=== PATIENT | male | born 1940 | race Caucasian/White ===

== ENCOUNTER 2018-08-01 06:13 | Inpatient (IN) | payer MEDICARE, OTHER ==
[2018-08-01] VITALS (44 sets, daily range): BP systolic 56–183; BP diastolic 31–86
[~2018-08-01] VITALS: Ht 170.2 cm; Wt 65.8 kg
[~2018-08-01 06:13] MED LIST: ACCUNEB SO1.25 MG/1; ASPIR 8181 MG PO; B-121000 MC2 PO; BROVANA15 MCG/2 M INH; COLACE100 MG PO; DUONEB 2.5-0.5 M3 ML INH; ENOXAPARIN40 MG/0.1 SUBQ; FLORANEX TABLE1 EACH PO; HYDROCODONE-AP1 EAC6 PO; IPRAT-ALBUT 0.5-3 ML INH; LEVAQUIN 500 M500 M2 PO; MIRALAX17 GM PO; NORCO 5-325 TA1 EACH PO; NYAMYC15 GM TOP; PREDNISONE 10 M10 MG PO; PROVIGIL 200 M200 M1 PO; RISPERDAL0.25 MG PO; RISPERDAL0.5 MG PO; SENNA PO; SENNA8.6 MG PO; SERTRALINE HCL50 MG PO; [UNRECOGNIZED DRUG - OTHER] INH; [UNRECOGNIZED DRUG - OTHER] SL
[2018-08-01 06:53] LABS: URINE BILIRUBIN NEGATIVE (Negative); URINE BLOOD NEGATIVE (Negative); URINE CLARITY CLEAR; URINE COLOR YELLOW; URINE GLUCOSE-RANDOM NEGATIVE (Negative); URINE KETONES NEGATIVE (Negative); URINE LEUKOCYTES-REFLEX NEGATIVE (Negative); URINE NITRITE-REFLEX NEGATIVE (Negative); URINE PROTEIN NEGATIVE (Negative); URINE SPECIFIC GRAVITY 1.025 (1.005-1.030); URINE UROBILINOGEN 0.2 E.U./dl (0.2-1.0)
[2018-08-01 07:22] LABS: ABSOLUTE EOSINOPHILS 0.1 thou/uL (0.0-0.7); ABSOLUTE LYMPHOCYTES 0.8 thou/uL (0.8-5.3); ABSOLUTE MONOCYTES 0.2 thou/uL (0.0-1.2); ABSOLUTE NEUTROPHILS 16.8 thou/uL (1.6-8.1); BASOPHILS 0.2 %; EOSINOPHILS 0.8 %; HEMATOCRIT 35.4 % (42.0-52.0); HEMOGLOBIN 11.5 gm/dL (14.0-18.0); LYMPHOCYTES 4.4 %; MCH 29.7 pg (26.0-34.0); MCHC 32.4 g/dL (28.0-37.0); MCV 91.7 fL (80.0-100.0); MONOCYTES 1.4 %; MPV 7.2 fl. (7.2-11.1); NUCLEATED RBCS 0 /100WBC; PLATELET COUNT* 354 thou/uL (150-400); POLYS 93.2 %; RBC 3.86 mil/uL (4.50-6.00); RDW-CV 16.3 % (10.5-14.5)
[2018-08-01 07:23] LABS: BE -4.9 mmol/L (-2 to +3)
[2018-08-01 07:25] LABS: PCO2 54.4 mmHg (35.0-45.0); PO2 133.3 mmHg (75.0-100.0); pH 7.242 (7.340-7.450)
[2018-08-01 07:37] LABS: APTT 21.5 Seconds (25.0-31.3); PROTIME 9.8 Seconds (9.20-11.50)
[2018-08-01 07:44] LABS: ALBUMIN 2.7 g/dL (3.4-5.0); CALCIUM 8.2 mg/dL (8.5-10.1); CREATININE 1.1 mg/dL (0.6-1.3); MAGNESIUM 1.8 mg/dL (1.8-2.4); POTASSIUM 4.3 mmol/L (3.5-5.1); TOTAL BILIRUBIN 0.3 mg/dL (<0.1-1.0); TOTAL PROTEIN 6.3 g/dL (6.4-8.2); TROPONIN-I LEVEL 0.35 ng/mL (<0.06)
[2018-08-01] MEDS ORDERED: BUSPIRONE HCL7.5 MG PO (10:20)
[2018-08-01] MEDS ORDERED: CENTRUM SILVER1 EAC4 PO (10:21)
[2018-08-01] MEDS ORDERED: MUCINEX600 MG PO (10:22)
[2018-08-01] MEDS ORDERED: COZAAR 25 MG TA25 M1 PO (10:22)
[2018-08-01] MEDS ORDERED: PREDNISONE 10 M10 MG PO (10:23)
[2018-08-01] MEDS ORDERED: PROTONIX40 M1 PO (10:23)
[2018-08-01] MEDS ORDERED: SYMBICORT160 MCG/4. INH (10:24)
[2018-08-01] MEDS ORDERED: VITAMINC500 PO (10:25)
[2018-08-01] MEDS ORDERED: ACCUNEB SO1.25 MG/1 INH (10:26)
[2018-08-01] MEDS ORDERED: XANAX1 MG PO (10:26)
[2018-08-01] MEDS ORDERED: NORCO 5-325 TA1 EACH PO (10:26)
[2018-08-01 10:49] LABS: INFLUENZA A ANTIGEN None Detected (None Detect); INFLUENZA B ANTIGEN None Detected (None Detect)
--- NOTE | 2018-08-01 11:12 | EKG ---
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 Director: : 1940 Requested By: Tiffany Dumont Order Number: [id number] MD: Tanner Fay Measurements Intervals [place] Rate: 132 P: 87 [place]: 136 QRS: -1 QRSD: 78 T: 86 QT: 285 QTc: 423 Interpretive Statements sinus tachycardia with pvc septal q waves Compared to ECG 05/28/2015 02:43:33 septal q waves noted Electronically Signed On 08-01-2018 11:12:09 CDT by Tanner Fay [email or web address] <ELECTRONICALLY SIGNED> By: Tanner Fay MD, [facility] 08/01/18 1112 5 5 Tanner Fay MD, [facility] /EPI
[2018-08-01 13:03] LABS: BE -2.8 mmol/L (-2 to +3); PCO2 41.5 mmHg (35.0-45.0); PO2 97.8 mmHg (75.0-100.0); pH 7.354 (7.340-7.450)
--- NOTE | 2018-08-01 13:23 | NUR ---
PT ADMITTED TO ICU AROUND 0900 THIS AM. REFER TO ASSESSMENT. FAMILY AT BEDSIDE AND ABLE TO ANSWER HISTORY QUESTIONS. TWO DAUGHTERS REPORT THEY ARE PT'S DPOA. ADDRESSED CODE STATUS WITH FAMILY AND DPOA DAUGHTERS REPORT THAT PT WAS PREVIOUSLY A DNR, BUT PT STATED HE WAS AGREEABLE FOR INTUBATION WHILE IN ED. DPOA DAUGHTERS WERE UNDECIDED REGARDING KEEPING PT A DNR AT THIS TIME. PT REMAINS FULL CODE. TELE ST WITH PVC'S. PT STARTED ON LEVO GTT, TITRATE TO KEEP MAP >65. PROPOFOL AND VERSED GTT FOR SEDATION NEEDED AT THIS TIME. VENT SETTINGS TITRATED PER PULMONOLOGY. CARDIOLOGY CONSULTED THIS SHIFT. PT FEBRILE WITH T MAX 101.5 AT THIS TIME. RECTAL TYLENOL ADMINISTERED. NO OTHER CONCERNS AT THIS TIME. CLWR. WCTM.
--- NOTE | 2018-08-01 13:51 | 2DMMODE ---
[place] [address] 2 D/M-MODE ECHOCARDIOGRAM Name: TERENCE VALENZUELA Room: [address] IN [facility]#: [id number] Admission: 08/01/18 Attend Phys: Azeem Floyd MD Discharge: Date of : 40 Date of Service: 08/01/18 1351 Report #: [id number] THIS REPORT FOR: //name// APPROVED REPORT Study performed: 08/01/2018 09:52:23 EXAM: Comprehensive 2D, Doppler, and color-flow Echocardiogram Patient Location: In-Patient Room #: 001 Status: routine BSA: 1.73 HR: 116 bpm BP: 106/62 mmHg Rhythm: NSR Other Information Study Quality: Good Indications Elevated Troponin 2D Dimensions IVSd: 9.76 (7-11mm) LVOT Diam: 21.83 (18-24mm) LVDd: 44.27 mm PWd: 9.40 (7-11mm) LVDs: 29.75 (25-40mm) Aortic Root: 35.72 mm Volumes Left Atrial Volume (Systole) LA ESV Index: 22.00 mL/m2 Aortic Valve AoV Peak Jamar.: 1.55 m/s AO Peak Gr.: 9.64 mmHg LVOT Max P.54 mmHg AO Mean Gr.: 5.62 mmHg LVOT Mean P.12 mmHg LVOT Max V: 0.94 m/s AO V2 VTI: 20.79 cm LVOT Mean V: 0.70 m/s MAHENDRA (VTI): 2.50 cm2 LVOT V1 VTI: 13.87 cm Mitral Valve E/A Ratio: 0.54 MV Decel. Time: 91.17 ms MV E Max Jamar.: 0.57 m/[place] [address] 2 D/M-MODE ECHOCARDIOGRAM Name: TERENCE VALENZUELA Room: [address] IN .R.#: [id number] Admission: 08/01/18 Attend Phys: Azeem Floyd MD Discharge: Date of : 40 Date of Service: 08/01/18 1351 Report #: [id number] MV PHT: 26.44 ms MVA (PHT): 8.32 cm2 TDI E/Lateral E': 6.33 E/Medial E': 5.70 Medial E' Jamar.: 0.10 m/s Lateral E' Jamar.: 0.09 m/s Pulmonary Valve PV Peak Jamar.: 1.06 m/s PV Peak Gr.: 4.52 mmHg Tricuspid Valve RAP Estimate: 5.00 mmHg TR Peak Gr.: 27.36 mmHg RVSP: 32.00 mmHg PA Pressure: 32.00 mmHg Left Ventricle The left ventricle is normal size. There is normal LV segmental wall motion. There is normal left ventricular wall thickness. Left ventricular systolic function is normal. The left ventricular ejection fraction is within the normal range. LVEF is 60-65%. Grade I - abnormal relaxation pattern. Right Ventricle The right ventricle is normal size. The right ventricular systolic function is normal. Atria The left atrium size is normal. The right atrium size is normal. Aortic Valve Mild aortic valve sclerosis. Mild aortic regurgitation. There is no aortic valvular stenosis. Mitral Valve The mitral valve is normal in structure. There is no mitral valve regurgitation noted. No evidence of mitral valve stenosis. Tricuspid Valve The tricuspid valve is normal in structure. Mild tricuspid regurgitation. estimate pa pressure 35 mm Hg Pulmonic Valve The pulmonary valve is normal in structure. There is no pulmonic [place] [address] 2 D/M-MODE ECHOCARDIOGRAM Name: TERENCE VALENZUELA Room: [address] IN [facility]#: [id number] Admission: 08/01/18 Attend Phys: Azeem Floyd MD Discharge: Date of : 40 Date of Service: 08/01/18 1351 Report #: [id number] Great Vessels The aortic root is normal in size. IVC is normal in size and collapses >50% with inspiration. Pericardium There is no pericardial effusion. <Conclusion> LVEF is 60-65%. Mild aortic valve sclerosis. Mild aortic regurgitation. <ELECTRONICALLY SIGNED> By: Tanner Fay MD, FAC 08/01/18 1351 135 135 Tanner aFy MD, FAC /INF
[2018-08-02] VITALS (53 sets, daily range): BP systolic 76–166; BP diastolic 43–89
[2018-08-02 05:19] LABS: HEMATOCRIT 33.6 % (42.0-52.0); HEMOGLOBIN 11.2 gm/dL (14.0-18.0); MCH 30.3 pg (26.0-34.0); MCHC 33.2 g/dL (28.0-37.0); MCV 91.2 fL (80.0-100.0); MPV 7.3 fl. (7.2-11.1); RBC 3.69 mil/uL (4.50-6.00); WBC 30.2 thou/uL (4.0-11.0)
[2018-08-02 05:36] LABS: ALBUMIN 2.1 g/dL (3.4-5.0); ALKALINE PHOSPHATASE 56 U/L (46-116); ANION GAP 11 mmol/L (7-16); BUN 25 mg/dL (7-18); CALCIUM 7.9 mg/dL (8.5-10.1); CHLORIDE 108 mmol/L (98-107); CHOLESTEROL 84 mg/dL (<200); CO2 22 mmol/L (21-32); CREATININE 1.4 mg/dL (0.6-1.3); GLUCOSE 197 mg/dL (70-99); HDL CHOLESTEROL 60 mg/dL (>40); LDL CHOLESTEROL 16 mg/dL (<100); MAGNESIUM 1.5 mg/dL (1.8-2.4); POTASSIUM 4.2 mmol/L (3.5-5.1); SGOT 22 U/L (15-37); SGPT 20 U/L (30-65); SODIUM 141 mmol/L (136-145); TC:HDL 1.4 Ratio (Not establshd); TOTAL BILIRUBIN 0.6 mg/dL (<0.1-1.0); TOTAL PROTEIN 5.6 g/dL (6.4-8.2); TRIGLYCERIDE 44 mg/dL (<150); TROPONIN-I LEVEL 0.53 ng/mL (<0.06); VLDL 9 mg/dL (<40)
[2018-08-02 05:42] LABS: SERUM ASSESSMENT CLEAR
[2018-08-02 06:19] LABS: BE -4.9 mmol/L (-2 to +3); PCO2 39.8 mmHg (35.0-45.0); pH 7.331 (7.340-7.450)
[2018-08-02 06:20] LABS: PO2 144.8 mmHg (75.0-100.0)
--- NOTE | 2018-08-02 06:57 | NUR ---
ASSUMED CARE OF PT AT 1900 PT SEDATED AND IN SOFT WRIST RESTRAINTS. PTS SEDATION AND LEVO TITRATED THROUGHOUT SHIFT SEE DOCUMENTATION. PT TURNED Q2H. WILL CONTINUE PLAN OF CARE.
--- NOTE | 2018-08-02 13:22 | CON ---
[address] [address] CONSULTATION Name: NICOLASTERENCE Koroma Room: [address] IN M.R.#: [id number] Admission: 08/01/18 Attend Phys: Azeem Floyd MD Discharge: Date of : 40 Report #: [id number] THIS REPORT FOR: //name// CC: TARIK physician/PCP Guille Floyd DATE OF SERVICE: 08/01/2018 CARDIOLOGY CONSULTATION HISTORY OF PRESENT ILLNESS: The patient is a 78-year-old single white male who I was asked to see in the hospital today after he was noted to have an elevated troponin. The history is obtained from the family and some old records. The patient is currently intubated and sedated. According to family members, he has no previous history of heart disease. He apparently had a syncopal spell in April and was admitted to [place]. He was found to have a fracture of his hip. He apparently underwent a cardiac evaluation and no cause of the syncope was discovered. He eventually was discharged to the [facility]. He was readmitted to [place] later in May with pneumonia. He eventually went to a detention. He has been at assisted living for the past month. The patient has been continuing to undergo rehabilitation; however, this morning, he was noted to be short of breath. The patient was brought to [place] by ambulance and was noted to be hypoxic. He was intubated in the Emergency Room and admitted. He was noted to be hypotensive and he was placed on Levophed. A central line was placed. I was asked to see him for further evaluation and treatment. He has no history of myocardial infarction, chest pain. He does have chronic dyspnea and is on oxygen. PAST MEDICAL HISTORY: He has had previous stroke leading to decreased cognition. He has had hip surgery, hypertension. He uses an inhaler. Of note, he has had a previous history of hypertension, but in the past, his blood pressure was actually low. MEDICATIONS: Consist of DuoNeb, Risperdal, sertraline, aspirin, hydrocodone. ALLERGIES: He has no known drug allergies. FAMILY HISTORY: He is an only child. SOCIAL HISTORY: He is , previously was a heavy smoker, quit 3 years ago, also has a history of alcohol abuse. REVIEW OF SYSTEMS: He has had a history of COPD, uses inhaler. No history of peptic ulcer disease, liver disease, kidney disease, cancer, [place] [address] CONSULTATION Name: TERENCE VALENZUELA Room: [address]#: [id number] Admission: 08/01/18 Attend Phys: Azeem Floyd MD Discharge: Date of : 40 Report #: [id number] or chronic skin condition. PHYSICAL EXAMINATION: GENERAL: Elderly, frail-appearing male who is on the ventilator, lying in bed. VITAL SIGNS: Blood pressure 100 systolic, pulse is 90. HEENT: He is anicteric. Mucous membranes appear dry. NECK: Neck veins do not appear distended. CHEST: Revealed decreased breath sounds in both bases. CARDIOVASCULAR: Regular rate and rhythm. ABDOMEN: Soft. EXTREMITIES: Had no edema. Dorsalis pedis pulse cannot be palpated. SKIN: Cool and dry. NEUROLOGIC: Nonfocal. LABORATORY DATA: His ECG showed sinus tachycardia, nonspecific ST-segment changes with PVC. His workup so far, he had a portable chest x-ray on admission this morning that showed left basilar infiltrate. Endotracheal tube in place. He had an echocardiogram done today that showed ejection fraction 60% with aortic sclerosis, mild aortic insufficiency. His lab work, sodium 143, creatinine 1.1. Albumin 2.7. His troponin is elevated at 1.7. BNP 230. TSH 4.5. White blood cell count 18.0, hemoglobin is 11.5. IMPRESSION AND RECOMMENDATIONS: 1. Type 2 myocardial infarction. Suspect related to oxygen supply demand mismatch. I would not recommend cardiac catheterization. I would recommend an aspirin a day. 2. Sepsis. The patient is on Levophed. 3. Pneumonia. 4. Previous stroke. 5. History of tobacco abuse. 6. History of alcohol abuse. <ELECTRONICALLY SIGNED> By: Tanner Fay MD, FACC 08/02/18 1322 1708 0500Daulysses Fay MD, FACC /nt
--- NOTE | 2018-08-02 13:34 | EKG ---
[place] [address] ELECTROCARDIOGRAM REPORT Name: TERENCE VALENZUELA Room: [address] ADM IN M.R.#: [id number] Admission: 08/01/18 Attend Phys: Azeem Floyd MD Discharge: Date of : 40 Report #: [id number] THIS REPORT FOR: //name// [facility] Test Date: 2018-08-02 Test Time: 08:58:01 Pat Name: TERENCE VALENZUELA Department: Room: [address] Gender: M Executor Of Estate: : 1940 Requested By: Tanner Fay Order Number: [id number] Chandler MD: Tanner Fay Measurements Intervals [place] Rate: 64 P: 68 NC: 130 QRS: 2 QRSD: 82 T: 233 QT: 511 QTc: 528 Interpretive Statements Sinus rhythm Nonspecific T abnormalities, inferior leads Prolonged QT interval Compared to ECG 08/01/2018 06:26:37 T-wave abnormality now present Prolonged QT interval now present Sinus tachycardia no longer present Ventricular premature complex(es) no longer present Electronically Signed On 08-02-2018 13:34:44 CDT by Tanner Fay [email or web address] <ELECTRONICALLY SIGNED> By: Tanner Fay MD, [facility] 08/02/18 1334 0858 0858 Tanner Fay MD, [facility] /EPI
--- NOTE | 2018-08-02 14:48 | NUR ---
Pt admitted yesterday with resp failure, was intubated yesterday morning and remains on the vent. No family in the room earlier this morning. Spoke with Yanely from [facility], pt is a retirement care resident. He is normally alert, propels himself to the dining room in his wheelchair, eats well. [facility] plans on pt returning when stable for discharge. Updated Yanely on pt's condition.
--- NOTE | 2018-08-02 19:42 | NUR ---
PATIENT REMAINS ON VENT 40 FIO2. NO MORE EMESIS NOTED REMAINS AFEBRILE. LEVO-PHEDE AT 5 MCG SEE BP OMN FLOW SHEET. PROGRESSING SLOWLY
--- NOTE | 2018-08-02 20:30 | NUR ---
SKIN WARM AND DRY TO TOUCH, 93.2 CORE TEMP VIA CARBAJAL TEMP PROBE, ATTEMPTED TO OBTAINE AXILLARY AND ORAL TEMP FOR FURTHER TEMP EVALUATION, DIGITAL THERMOMETER UNABLE TO OBTAIN ORAL OR AXILLARY READING, RECTAL TEMP OBTAINED READING 93.4, CUBA JEFFRIES INITATED FOR TEMPERATURE REGULATION.
[2018-08-03] VITALS (117 sets, daily range): BP systolic 72–149; BP diastolic 37–75
[2018-08-03 04:15] LABS: HEMATOCRIT 28.1 % (42.0-52.0); HEMOGLOBIN 9.3 gm/dL (14.0-18.0); MCH 29.7 pg (26.0-34.0); MCV 89.9 fL (80.0-100.0); MPV 7.5 fl. (7.2-11.1); NUCLEATED RBCS 0 /100WBC; RBC 3.13 mil/uL (4.50-6.00); RDW-CV 16.6 % (10.5-14.5); WBC 20.9 thou/uL (4.0-11.0)
[2018-08-03 04:21] LABS: CREATININE 1.1 mg/dL (0.6-1.3); POTASSIUM 3.7 mmol/L (3.5-5.1)
[2018-08-03 04:27] LABS: BE -3.7 mmol/L (-2 to +3); PCO2 38.1 mmHg (35.0-45.0); PO2 89.4 mmHg (75.0-100.0); pH 7.364 (7.340-7.450)
[2018-08-03 04:45] LABS: PLATELET COUNT* 218 thou/uL (150-400)
[2018-08-03 06:06] LABS: ABSOLUTE LYMPHOCYTES 0.2 thou/uL (0.8-5.3); ABSOLUTE MONOCYTES 0.4 thou/uL (0.0-1.2); ABSOLUTE NEUTROPHILS 20.3 thou/uL (1.6-8.1)
[2018-08-03 06:07] LABS: ANISOCYTOSIS 1+; OVALOCYTES 1+; PLATELET ESTIMATE ADEQUATE; POIKILOCYTOSIS 1+
--- NOTE | 2018-08-03 08:44 | CON ---
[address] [address] CONSULTATION Name: TERENCE VALENZUELA Room: [address] IN M.R.#: [id number] Admission: 08/01/18 Attend Phys: Azeem Floyd MD Discharge: Date of : 40 Report #: [id number] THIS REPORT FOR: //name// CC: Dr. Jaylene Elizalde FAM physician/PCP Azeem Floyd DATE OF SERVICE: 08/01/2018 ATTENDING PHYSICIAN: Jaylene Elizalde MD LOCATION: The patient is located in bed #1 in the ICU. INDICATION FOR CONSULTATION: Left lower lobe pneumonia, respiratory failure. CLINICAL SUMMARY: The patient presented to [facility] Emergency [facility] from [facility]. He developed severe respiratory distress early this a.m. He had some cough with some productive sputum. Denied any fever, chills or sweats. There are no sick or ill contacts. He has a left lower lobe pneumonia on chest x-ray. He was more short of breath. Prior history of COPD, he has been oxygen dependent since April. He is on 2-3 liters. He may have been seen in our office before in the past. The patient has been in and out of rehab and then custodial facility between [place] and [facility] ([place] He had had pneumonia in May and was admitted and then was readmitted to custodial facility. He was trying to progress in strength and was up walking around. Had some cough. Again, hypoxic and not doing well in the Emergency Room, then intubated. His blood pressure is little soft at this time on propofol sedation. PAST MEDICAL HISTORY: History of mild to moderate COPD, oxygen dependent for the last 3-4 months. History of prior left lower lobe pneumonia, subcapital fracture of the left hip. ALLERGIES: He has no known medical allergies. CURRENT MEDICATIONS: Included vancomycin and piperacillin, also on Solu-Medrol and DuoNeb treatments. He is also on propofol and Levophed to support his blood pressure and had been on Risperdal 0.5 mg b.i.d. in the outpatient setting, also Zoloft 50 mg daily as well as Senokot. He has also been on losartan 50 mg daily for hypertension there. He was on some albuterol breathing treatments in the past, had been on modafinil, Provigil 200 mg daily for daytime sleepiness also noted. FAMILY HISTORY: Negative for premature cardiopulmonary disease. SOCIAL HISTORY: He is a former smoker, who I think he had a 30- to 40[place] [address] CONSULTATION Name: NICOLASTERENCE Franci Room: [address] IN M..#: [id number] Admission: 08/01/18 Attend Phys: Azeem Floyd MD Discharge: Date of : 40 Report #: [id number] history, quit about 10 years ago. Denies any alcohol or illicit drug use. REVIEW OF SYSTEMS: A 14-point review of systems was reviewed and were negative except for the pertinent positives noted in HPI. PHYSICAL EXAMINATION: GENERAL: Ill-appearing 78-year-old male on the ventilator, sedated on propofol at this time. VITAL SIGNS: Blood pressure was soft, it is 96/50, heart rate is 110, respirations are 16, with backup rate of 16, temperature is 36.9 degrees. He is 5 feet 9 inches tall, weight is 68 kilograms or 150 pounds, BMI is 23. HEENT: Pupils are midpoint and reactive. Orally intubated. NECK: Supple without nodes. CHEST: Shows rhonchi and wheeze in left lower lobe. Right chest shows a few rhonchi. CARDIOVASCULAR: Sinus tachycardia with heart rate of 110. ABDOMEN: Soft without masses or megaly. EXTREMITIES: No calf tenderness. No cyanosis, clubbing or edema. NEUROLOGIC: Grossly intact. He will withdraw to commands. LABORATORY DATA: Blood cultures are pending. Hemoglobin is 11, white count is 18,000, platelets are 354,000. Sodium is 143, potassium is 4.3, bicarbonate is 27, BUN is 19, creatinine is 1.1, glucose 117, calcium is 8.2. LFTs within normal limits. Troponin minimally bumped and albumin is 2.7. ABGs this morning at about 7:00 on 100% for 50 assist control 16 and 5 showed a pO2 of 133, pH 7.24, pCO2 is 54 with a bicarbonate of 23 and a sat of 97%. Chest x-ray shows ET tube a little low, has been pulled back and then COPD and then left lower lobe infiltrate, small effusion. Again, cultures are pending. IMPRESSION: 1. Acute respiratory failure. 2. Oxygen-dependent chronic obstructive pulmonary disease. 3. Hospital-acquired pneumonia from the outside being in and out of nursing homes with high risk, etc. Left lower lobe pneumonia with small left effusion and respiratory failure with respiratory acidosis. 4. Prior hip fracture. PLAN: We will keep on antibiotics, steroids, breathing treatments. We will see if we can give him a little bit of fluids. We will adjust the ventilator and see if we can increase his tidal volume and PEEP and clear out his left lower lobe. Once we get him down to 40% and 7 of PEEP, we will work on T-tube trials and weaning the patient, then proceed from there. [address] [address] CONSULTATION Name: TERENCE VALENZUELA Room: [address] IN [facility].#: [id number] Admission: 08/01/18 Attend Phys: Azeem Floyd MD Discharge: Date of : 40 Report #: [id number] This has been a 37-minute critical care consult. <ELECTRONICALLY SIGNED> By: Donna Dumont MD 08/03/18 0844 1129 [id number] Barron MD /nt
--- NOTE | 2018-08-03 10:00 | NUR ---
VSS. AFEBRILE. GREEN BILE SUCTIONED OUT OF ET TUBE. WILL CONTINUE PLAN OF CARE.
--- NOTE | 2018-08-03 17:00 | NUR ---
BLOOD SUGAR CHECKED. 141. DR NOTIFIED. NO ORDERS FOR INSULIN AT THIS TIME FOR BLOOD SUGARS LESS THAN 200.
--- NOTE | 2018-08-03 18:00 | NUR ---
VERSED TITRATED OFF PER PULMONARY ORDERS. PT STARTED ON FENTANYL PER PULMONARY ORDERS. SEDATION VACATION PREFORMED. PT CAME OFF ALL SEDATION. PT HAS GAG REFLEX. NOT FOLLOWING COMMANDS. WHILE SEDATIONS OFF. PT WENT INTO AFIB RVR. DR NOTIFIED. ORDERS RECEIVED.
--- NOTE | 2018-08-03 18:31 | NUR ---
PT WENT INTO AFIB RVR DURING SEDATION VACATION. NOTIFIED AND RECEIVED ORDER FOR DILTIAZEM GTT. DILTIAZEM TITRATED TO MAX DOSE OF 20 MG/ HOUR. DR FRANZ ON FLOOR, EKG OBTAINED, DR FRANZ NOTIFIED RECEIVED ORDER FOR 0.5MG DIGOXIN.
[2018-08-04] VITALS (71 sets, daily range): BP systolic 101–154; BP diastolic 41–71
[2018-08-04 05:34] LABS: ABSOLUTE LYMPHOCYTES 0.3 thou/uL (0.8-5.3); ABSOLUTE MONOCYTES 0.4 thou/uL (0.0-1.2); ABSOLUTE NEUTROPHILS 17.8 thou/uL (1.6-8.1); BASOPHILS 0.1 %; HEMATOCRIT 28.7 % (42.0-52.0); HEMOGLOBIN 9.5 gm/dL (14.0-18.0); LYMPHOCYTES 1.5 %; MCH 29.9 pg (26.0-34.0); MCHC 33.3 g/dL (28.0-37.0); MCV 89.9 fL (80.0-100.0); MONOCYTES 2.1 %; MPV 7.5 fl. (7.2-11.1); NUCLEATED RBCS 0 /100WBC; PLATELET COUNT* 208 thou/uL (150-400); POLYS 96.3 %; RBC 3.19 mil/uL (4.50-6.00); RDW-CV 16.8 % (10.5-14.5); WBC 18.5 thou/uL (4.0-11.0)
[2018-08-04 05:55] LABS: BE -3.7 mmol/L (-2 to +3); PCO2 33.4 mmHg (35.0-45.0); PO2 87.1 mmHg (75.0-100.0); pH 7.409 (7.340-7.450)
[2018-08-04 05:57] LABS: ALBUMIN 1.8 g/dL (3.4-5.0); CALCIUM 8.2 mg/dL (8.5-10.1); CREATININE 0.9 mg/dL (0.6-1.3); POTASSIUM 3.9 mmol/L (3.5-5.1); TOTAL BILIRUBIN 0.4 mg/dL (<0.1-1.0); TOTAL PROTEIN 5.1 g/dL (6.4-8.2)
--- NOTE | 2018-08-04 07:00 | NUR ---
PROGRESSING TOWARDS GOALS, SEE COMPUTERIZED ASSESSMENT CHARTING FOR FURTHER DETAILS, HYPOTHERMIC DURING NOC, CARBAJAL CATHETER CORE TEMP 95.4, CUBA HUGGER INITIATED, NORMOTHERMIC THIS AM 98.6, CUBA HUGGER REMOVED, CARDIZEM GTT 5MG/HR, CONVERTED FROM AFIB TO SR THIS AM, SEDATION VACATION BEGINNING NOC, PT SITTING UP IN BED AND BITING DOWN ON ETT, UNABLE TO REDIRECT, PROPOFOL RESTARTED 30MCG/KG/MIN, SMALL AMOUNT BLOODY SPUTUM VIA INLINE SUCTIONING, NO CHANGE IN VENTILATOR SETTINGS BY RT DURING NOC, SAFETY MAINTAINED.
--- NOTE | 2018-08-04 09:06 | NUR ---
VSS. AFEBRILE. SEDATION VACATION STARTED. DILTIAZEM DC'D BY CARDIOLOGY AND CHANGED TO ORAL AMIODARONE. AMIODARONE ADMINISTERED PER EMAR. PT SR WITH HEART RATE IN 60'S. HEART RATE WAS 47 BUT REBOUNDED AND SUSTANING IN 60'S. LEVOPHED TITRATED OFF. CURRENT BP IS 113/52 WITH A MAP OF 82. WILL CONTINUE PLAN OF CARE.
--- NOTE | 2018-08-04 13:39 | EKG ---
[place] [address] ELECTROCARDIOGRAM REPORT Name: TERENCE VALENZUELA Room: [address] ADM IN M.R.#: [id number] Admission: 08/01/18 Attend Phys: Azeem Floyd MD Discharge: Date of : 40 Report #: [id number] THIS REPORT FOR: //name// [facility] Test Date: 2018-08-03 Test Time: 18:06:08 Pat Name: TERENCE VALENZUELA Department: Room: [address] Gender: M Fur Matcher: Aly Ambrose : 1940 Requested By: Ryder Obregon Order Number: [id number] Reading MD: Tanner Fay Measurements Intervals [place] Rate: 137 P: MA: QRS: 7 QRSD: 78 T: 72 QT: 326 QTc: 493 Interpretive Statements Atrial fibrillation Ventricular premature complex Borderline T wave abnormalities Borderline prolonged QT interval Compared to ECG 08/02/2018 08:58:01 Ventricular premature complex(es) now present Sinus rhythm no longer present T-wave abnormality still present Electronically Signed On 08-04-2018 13:38:41 CDT by Tanner Fay [email or web address] <ELECTRONICALLY SIGNED> By: Tanner Fay MD, [facility] 08/04/18 1338 1806 1806 Tanner Fay MD, [facility] /EPI
--- NOTE | 2018-08-04 16:20 | NUR ---
CORE TEMP THIS SHIFT HAS BEEN 97.0 - 97.9. CORE TEMP WENT TO 96.4. ORAL TEMP 98.0. BEAR HUGGER APPLIED FOR 1 1/2 HOURS. CORE TEMP 97.5.
--- NOTE | 2018-08-04 18:17 | NUR ---
PT HAS REMAINTED OF PRESSOR SUPPORT. CURRENT BP IS 127/56. LEFT ARM STARTING WEEP.
[2018-08-05] VITALS (46 sets, daily range): BP systolic 104–171; BP diastolic 41–88
--- NOTE | 2018-08-05 07:53 | NUR ---
PT REMAINED ON SEADATION OVERNIGHT, ON FENTANYL AND PROPOFOL GTT. PT BRADYCARDIC OVERNIGHT HR 38 TO 50'S , AMIODARONE HELD PER PARAMETERS BY CARDIOLOGY. BP STABLE WITH NO PRESSORS, CORE TEMP 97.2 TO 97.7, Q2HR TURNS DONE, BLANCHABLE REDDENED AREA NOTED ON SACARL/COCCYX, NO OPEN AREAS. BLOOD SUGARS CHECKED OVERNIGHT AND WITHIN NORMAL LIMITS.
--- NOTE | 2018-08-05 09:18 | NUR ---
PATIENT COMPLETED 45 MINUTE BREATHING TRIAL. TOLERATED WELL. VITALS REMAIN WITHIN NORMAL LIMITS. DOES NOT FOLLOW COMMANDS OR TRACK AT THIS TIME. SEDATION ON HOLD FOR NOW. ABG PENDING
[2018-08-05 09:24] LABS: BE -1.4 mmol/L (-2 to +3); PCO2 41.7 mmHg (35.0-45.0); PO2 104.5 mmHg (75.0-100.0); pH 7.374 (7.340-7.450)
--- NOTE | 2018-08-05 16:52 | NUR ---
PATIENT NOT WAKING UP ENOUGH TO FOLLOW ALL COMMANDS. WILL NOT EXTUBATE TONIGHT. PLAN IS TO LEAVE OFF ALL GTT SEDATION AND MONITOR THROUGHOUT THE NIGHT TO ALLOW PATIENT TO WAKE UP FULLY. DR SANTORO AWARE OF PATIENT NOT ABLE TO EXTUBATE.
--- NOTE | 2018-08-05 18:10 | NUR ---
PATIENT SOMEWHAT PROGRESSING WELL TOWARDS GOALS. OFF ALL SEDATION AT THIS TIME AND SOMEWHAT FOLLOWING COMMANDS BUT NOT FULLY AWAKE. WILL WAIT TO SEE HOW HE DOES TOMORROW. FAMILY WENT HOME FOR THE NIGHT. ALL QUESTIONS ANSWERED. RESTRAINTS REMAIN IN PLACE, BED IN LOWEST POSITON.
[2018-08-06] VITALS (24 sets, daily range): BP systolic 107–168; BP diastolic 37–105
[2018-08-06 06:52] LABS: HEMATOCRIT 29.1 % (42.0-52.0); HEMOGLOBIN 9.8 gm/dL (14.0-18.0); MCH 30.3 pg (26.0-34.0); MCHC 33.5 g/dL (28.0-37.0); MCV 90.2 fL (80.0-100.0); MPV 7.9 fl. (7.2-11.1); RBC 3.22 mil/uL (4.50-6.00); RDW-CV 16.1 % (10.5-14.5); WBC 5.7 thou/uL (4.0-11.0)
[2018-08-06 07:03] LABS: CALCIUM 8.2 mg/dL (8.5-10.1); CREATININE 1.1 mg/dL (0.6-1.3); POTASSIUM 3.1 mmol/L (3.5-5.1)
--- NOTE | 2018-08-06 07:33 | NUR ---
Pt more awake; shakes head no or nods head yes appropriately at times. VALDEZ, opens eyes to verbal/physical stimuli. Remains on Propofol at 5 mcg/kg/min. HR 40s-50s at times, even down to 35 on at least 2 occasions. HR back up to 70s-90s with verbal/physical stimuli. Good urine output; 1300 for shift. Rust-colored drainage from OG noted this am. Will continue to monitor.
--- NOTE | 2018-08-06 08:19 | NUR ---
ASSUMED PT CARE 0730. PT OPENING EYES. FOLLOWING COMMANDS. VSS. AFEBRILE. AM MEDICATIONS ADMININSTERED PER JUN. PT REPOSITIONED. ORAL CARE GIVEN. AWAITING PULMONARY FOR POSSIBLE WEANING TRIAL THIS AM.
--- NOTE | 2018-08-06 08:55 | NUR ---
PROPOFOL TITRATED OFF PER PULMONARY ORDERS.
--- NOTE | 2018-08-06 10:34 | NUR ---
POTASSIUM 3.1 AND REPLACED PER PROTOCOL
--- NOTE | 2018-08-06 10:36 | EKG ---
[place] [address] ELECTROCARDIOGRAM REPORT Name: TERENCE VALENZUELA Room: [address] ADM IN .R.#: [id number] Admission: 08/01/18 Attend Phys: Azeem Floyd MD Discharge: Date of : 40 Report #: [id number] THIS REPORT FOR: //name// [facility] Test Date: 2018-08-06 Test Time: 09:02:59 Pat Name: TERENCE VALENZUELA Department: Room: [address] Gender: M Plastics Fabricator Or Welder: : 1940 Requested By: Tanner Fay Order Number: [id number] Chandler MD: Tanner Fay Measurements Intervals [place] Rate: 51 P: 75 [place]: 137 QRS: -13 QRSD: 92 T: 57 QT: 393 QTc: 362 Interpretive Statements Sinus bradycardia Borderline T abnormalities, anterior leads Compared to ECG 08/03/2018 18:06:08 Atrial fibrillation no longer present Ventricular premature complex(es) no longer present T-wave abnormality still present Electronically Signed On 08-06-2018 10:36:32 CDT by Tanner Fay [email or web address] <ELECTRONICALLY SIGNED> By: Tanner Fay MD, [facility] 08/06/18 1036 0902 0902 Tanner Fay MD, [facility] /EPI
--- NOTE | 2018-08-06 10:42 | NUR ---
NO FAMILY IN ROOM. PT.REMAINS ON VENT. PER PT.'S RN, PT.TO HAVE WEANING TRIAL TODAY. AWAITING PULMONARY'S ORDER. CONTACTED CORINNE/GERALDO ROY TO SEE IF PT.HAS AD/DPOA ON FILE. SHE WILL FAX TO CM IF SHE HAS ONE.
[2018-08-06 11:40] LABS: BE 1.4 mmol/L (-2 to +3); PO2 102.3 mmHg (75.0-100.0)
--- NOTE | 2018-08-06 12:07 | NUR ---
PT EXTUBATED AT 1205 AND PLACED ON 6L HI FLOW NC SATTING AT 95%.
[2018-08-06 14:24] LABS: BE 0.6 mmol/L (-2 to +3); PCO2 34.3 mmHg (35.0-45.0); PO2 101.3 mmHg (75.0-100.0); pH 7.464 (7.340-7.450)
--- NOTE | 2018-08-06 18:26 | NUR ---
PT REFUSED BLOOD GLUCOSE STICK THIS EVENING. PT AGREEABLE TO CHECK BLOOD GLUCOSE AT HS.
--- NOTE | 2018-08-06 18:48 | NUR ---
PT ALERT TO PERSON. ABLE TO STATE BIRTHDATE. PT ATTEMPTING TO SPEAK. WEAK VOICE. AT TIMES WORDS ARE NOT UNDERSTOOD. PT CALM. ABLE TO FOLLOW DIRECTIONS. PT NPO PER PULMONARY. ST CONSULT PLACED PER PULMONARY FOR TOMORROW. VSS. SYSTOLIC BP 160'S. CLONODINE PATCH APPLIED TO RIGHT ARM/SHOULDER. DAUGHTERS AT BEDSIDE.
[2018-08-07] VITALS (15 sets, daily range): BP systolic 142–166; BP diastolic 52–76
[2018-08-07 04:24] LABS: HEMOGLOBIN 9.3 gm/dL (14.0-18.0); MCH 29.6 pg (26.0-34.0); MCHC 33.1 g/dL (28.0-37.0); MCV 89.3 fL (80.0-100.0); MPV 8.3 fl. (7.2-11.1); NUCLEATED RBCS 0 /100WBC; PLATELET COUNT* 160 thou/uL (150-400); RBC 3.14 mil/uL (4.50-6.00); WBC 6.4 thou/uL (4.0-11.0)
[2018-08-07 04:45] LABS: ALBUMIN 1.9 g/dL (3.4-5.0); CALCIUM 8.3 mg/dL (8.5-10.1); CREATININE 0.9 mg/dL (0.6-1.3); POTASSIUM 3.7 mmol/L (3.5-5.1); TOTAL BILIRUBIN 0.6 mg/dL (<0.1-1.0); TOTAL PROTEIN 4.9 g/dL (6.4-8.2)
[2018-08-07 06:06] LABS: ABSOLUTE LYMPHOCYTES 0.4 thou/uL (0.8-5.3); ABSOLUTE MONOCYTES 0.2 thou/uL (0.0-1.2); ABSOLUTE NEUTROPHILS 5.8 thou/uL (1.6-8.1); ANISOCYTOSIS 1+; PLATELET ESTIMATE ADEQUATE; POIKILOCYTOSIS 1+
--- NOTE | 2018-08-07 06:57 | NUR ---
PROGRESSING TOWARDS GOALS, OXYGEN VIA NC TITRATED DOWN BY RT FROM 4L TO 3L DURING SHIFT. SAO2 REMAINS =>96%, NO SOB OR DIFFICULTY BREATHING NOTED. KPAD HELPFUL FOR BACK PAIN PER PT VERBALIZED, HOLLERING OUT MOST OF NOC, GARBLED SPEECH AT TIMES, DIFFICULT TO UNDERSTAND, EASILY REORIENTED PLACE, TIME, AND SITUATION, PT CONFUSED AND FORGETFUL WHEN RN LEAVES ROOM. WANTS PO INTAKE, REFUSING ORAL CARE, EDUCATED AND ATTEMPTED ORAL CARE [id number] AND PRN, GENERALIZED WEAKNESS, AFEBRILE, NSR TRACING ANIMAL HERDER, FALL PRECAUTIONS IN PLACE, SERUM NA INCREASING FROM 151 TO 152 TODAY. RESTING QUIETLY WITH EYES CLOSED AFTER 0530 THIS AM, EASILY AROUSABLE TO VERBAL STIMULI.
--- NOTE | 2018-08-07 10:31 | NUR ---
ASSUMED PT CARE 0730. PT ALERT TO PERSON AND BIRTHDAY AND PLACE. DENTURES PUT IN PLACE. SPEECH BETTER UNDERSTOOD. PT STILL HAS GARBLED SPEECH AT TIMES. PT REPOSITIONED. HEATING PAD APPLIED TO BACK. HEATING PAD ON INTERMITTENT. DAUGHTER AT BEDSIDE. ST CONSULT, CALLED TO SEE PT. PER DAUGHTER PT HAS BEEN ON THICKENED LIQUIDS AND POSSIBLY PILLS CRUSHED. WILL CONTINUE PLAN OF CARE.
--- NOTE | 2018-08-07 11:00 | NUR ---
PT.AWAKER AND ORIENTED. DAUGHTER,FESTUS,AT BEDSIDE. SHE PLANS FOR HIM TO RETURN TO [facility] AT DISCHARGE. SHE SAID THEY HAVE HIM WALKING ABOUT 80 FT. HOPES HE DOESN'T HAVE TO START ALL THE WAY BACK AT THE BEGINNING. SHE HAS A SISTER AND BROTHER AND THEY ARE ALL ON THE SAME PAGE. PT.MOVED TO [facility] ON July. CM WILL FOLLOW FOR DISCHARGE PLANNING.
--- NOTE | 2018-08-07 18:26 | NUR ---
PT TRANSFERRED TO ROOM 211 VIA BED FROM ICU AT APPROXIMATELY 1740. REPORT RECEIVED FROM MARYAN BAIRD. THIS RN AGREES WITH PREVIOUS TRUST MANAGER ASSISTANT. PT ORIENTED TO ROOM AND CALL LIGHT. FAMILY AT BEDSIDE AND UPDATED ON CURRENT PLAN OF CARE. MEDICATIONS PER JUN. PT REPOSITIONED EVERY 2 HOURS FOR COMFORT. HOURLY ROUNDING OBSERVED. BED IN LOW POSITION. BED ALARM IN PLACE. FALL PRECAUTIONS IN PLACE. CALL LIGHT WITHIN REACH. WILL CONTINUE PLAN OF CARE.
--- NOTE | 2018-08-08 02:16 | NUR ---
PT IS ALERT TO SELF. STATES IT'S "1940" AND HE IS "20 YEARS OLD." PT HAS GENERALIZED WEAKNESS BUT IS DISPLAYING RIGHT SIDED WEAKNESS IN ARM AND LEG COMPARATIVELY. PT'S FACE APPEARS SLIGHTLY ASYMETRICAL WITH LEFT SIDE UNEVEN SMILE DURING ASSESSMENT. PT WAS MINIMALLY COOPERATIVE WITH NIH SCALE. REFUSED TO LOOK AT PICTURES OR READ/REAPEAT SENTENCES. BECAME AGITATED STATING"I JUST WANT TO GO TO BED." SCORED PT AT AN 8. PAGED CLIENT INSIGHTS CONSULTANT DR GRIGGS STATUS-DR MORALES.
--- NOTE | 2018-08-08 02:42 | NUR ---
ANSWERING SERVICE CALLED BACK. ATTEMPTED TO CONNECT TO DR MORALES. NO ANSWER. WILL TRY BACK IN 10 MIN.
--- NOTE | 2018-08-08 03:14 | NUR ---
DR MORALES RETURNED CALL. STAT HEAD CT AND AND NEURO CONSULT ORDERED.
--- NOTE | 2018-08-08 03:35 | NUR ---
PT TRANSPORTED TO CT BY RN AND COLLECTIONS AND ARCHIVES DIRECTOR. NOTICEABLE LEFT SIDED DROOPING. MINIMALLY COMBATIVE- COOPERATIVE IN GENERAL.
[2018-08-08 04:00] VITALS: BP 154/64
[2018-08-08 05:48] LABS: ABSOLUTE LYMPHOCYTES 0.3 thou/uL (0.8-5.3); ABSOLUTE MONOCYTES 0.2 thou/uL (0.0-1.2); ABSOLUTE NEUTROPHILS 7.2 thou/uL (1.6-8.1); EOSINOPHILS 0.1 %; MPV 8.6 fl. (7.2-11.1); WBC 7.8 thou/uL (4.0-11.0)
[2018-08-08 05:50] LABS: HEMATOCRIT 29.3 % (42.0-52.0); HEMOGLOBIN 9.9 gm/dL (14.0-18.0); LYMPHOCYTES 4.4 %; MCH 30.3 pg (26.0-34.0); MCHC 33.7 g/dL (28.0-37.0); MCV 89.9 fL (80.0-100.0); MONOCYTES 3.2 %; NUCLEATED RBCS 0 /100WBC; PLATELET COUNT* 166 thou/uL (150-400); POLYS 92.3 %; RBC 3.25 mil/uL (4.50-6.00); RDW-CV 16.1 % (10.5-14.5)
[2018-08-08 06:04] LABS: CALCIUM 8.6 mg/dL (8.5-10.1); CREATININE 0.8 mg/dL (0.6-1.3); POTASSIUM 3.6 mmol/L (3.5-5.1); TOTAL BILIRUBIN 0.8 mg/dL (<0.1-1.0)
[2018-08-08 08:00] VITALS: BP 152/58
[2018-08-08 12:00] VITALS: BP 158/61
--- NOTE | 2018-08-08 12:26 | NUR ---
PT UPGRADED TO MECHANICAL SOFT-GROUND/NECTAR DIET, WHICH IS PT'S BASELINE DIET. WILL CONTINUE TO FOLLOW FOR DIET MONITORING.
--- NOTE | 2018-08-08 12:36 | NUR ---
ASSUMED CARE OF PT AT 0730. PT RESTING IN BED. PT A&0X2, GARBLED SPEECH AT TIMES. PT DAUGHTER AT BEDSIDE AND UPDATED ON CURRENT PLAN OF CARE. PT TRACING SR ON THE PARAMEDIC. ON 2L NC SAT UPPER 90'S. PT DENIES ANY PAIN OR SHORTNESS OF BREATH AT THIS TIME. CARBAJAL TO DEPENDENT DRAINAGE WITH YELLOW URINE. TPN INFUSING AT 40ML/HR. PT UP WITH MAX ASSIST. PT NPO. PT GOAL FOR TODAY IS TO BE SEEN BY NEUROLOGY, SPEECH THERAPY EVAL AND TREAT AND ADVANCE DIET. AM ASSESSMENT CHARTED. MEDICATIONS PER JUN. PT REPOSITIONED EVERY 2 HOURS FOR COMFORT. HOURLY ROUNDING OBSERVED. BED IN LOW POSITION. BED ALARM IN PLACE. FALL PRECAUTIONS IN PLACE. CALL LIGHT WITHIN REACH. WILL CONTINUE PLAN OF CARE.
[2018-08-08 16:43] VITALS: BP 125/56
--- NOTE | 2018-08-08 18:42 | NUR ---
NO ACUTE CHANGES THROUGHOUT SHIFT. REFER TO CHARTING. PT SLOWLY PROGRESSING TOWARDS GOALS. NEURO CONSULT IN PLACE. ORDER RECEIVED FOR US CAROTIDS. SPEECH THERAPY EVAL AND TREAT COMPLETED. PT DIET ADVANCED TO MECHANICAL GROUND WITH NECTAR THICKENED LIQUIDS. PT TOLERATING WELL. REHAB CONSULT IN PLACE. PT CONTINUES TO TRACE SR ON THE RADIOPHARMACIST. ON 2L NC SAT UPPER 90'S. PT DENIES ANY PAIN OR SHORTNESS OF BREATH THROUGHOUT SHIFT. MEDICATIONS PER JUN. PT REPOSITIONED EVERY 2 HOURS FOR COMFORT. HOURLY ROUNDING OBSERVED. BED IN LOW POSITION. BED ALARM IN PLACE. FALL PRECAUTIONS IN PLACE. CALL LIGHT WITHIN REACH. WILL CONTINUE PLAN OF CARE.
[2018-08-08 20:00] VITALS: BP 133/60
[2018-08-09] VITALS: BP 111/60
[2018-08-09 04:00] VITALS: BP 138/61
[2018-08-09 07:39] VITALS: BP 160/66
--- NOTE | 2018-08-09 09:06 | NUR ---
ASSUMED CARE OF PT AT 0730. PT RESTING IN BED. DAUGHTER AT BEDSIDE. PT A&0X2, FORGETFUL AND CONFUSED AT TIMES. GARBLED SPEECH AT TIMES. PT TRACING SR ON THE BEEF KILLER. ON 2L NC SAT UPPER 90'S. PT DENIES ANY SHORTNESS OF BREATH OR PAIN AT THIS TIME. CARBAJAL TO DEPENDENT DRAINAGE. TPN DISCONTINUED. PT EATING AND DRINKING WELL ON GROUND WITH NECTAR THICKENED LIQUIDS. PT GOAL FOR TODAY IS REHAB AND NEURO CONSULT IN PLACE, WORK WITH PT, OT AND ST AND TITRATE OXYGEN. AM ASSESSMENT CHARTED. MEDICATIONS PER JUN WHOLE IN PUDDING. .PT REPOSITIONED EVERY 2 HOURS FOR COMFORT. HOURLY ROUNDING OBSERVED. BED IN LOW POSITION. BED ALARM IN PLACE. FALL PRECAUTIONS IN PLACE. CALL LIGHT WITHIN REACH. WILL CONTINUE PLAN OF CARE.
[2018-08-09 11:29] VITALS: BP 142/54
[2018-08-09 15:29] VITALS: BP 125/58
--- NOTE | 2018-08-09 16:57 | NUR ---
NO ACUTE CHANGES THROUGHOUT SHIFT. REFER TO CHARTING. PT PROGRESSING TOWARDS GOALS. REHAB AND NEURO CONSULT IN PLACE. PT WORKED WITH PT AND OT TODAY, TOLERATED WELL. PT REQUIRES ASSIST WITH MEALS, APPETITE GOOD. TPN INFUSING AT 80ML/HR. ORDERS RECEIVED TO DISCONTINUE AFTER CURRENT BAG IS FINISHED. DAUGHTERS AT BEDSIDE THROUGHOUT SHIFT AND UPDATED ON CURRENT PLAN OF CARE. CONTINUES TO TRACE SR ON THE SHALE MINER BLASTING. ON 2L NC SAT UPPER 90'S. DENIES ANY PAIN OR SHORTNESS OF BREATH THIS AFTERNOON. CARBAJAL TO DEPENDENT DRAINAGE. MEDICATIONS PER JUN. PT REPOSITIONED EVERY 2 HOURS FOR COMFORT. HOURLY ROUNDING OBSERVED. BED IN LOW POSITION. BED ALARM IN PLACE. FALL PRECAUTIONS IN PLACE. CALL LIGHT WITHIN REACH. WILL CONTINUE PLAN OF CARE.
[2018-08-09 19:40] VITALS: BP 136/52
[2018-08-10] VITALS (7 sets, daily range): BP systolic 138–184; BP diastolic 67–99
--- NOTE | 2018-08-10 04:53 | NUR ---
REPORT RECEIVED FROM OFF GOIGN SHIFT AND CARE ASSUMMED. MONITOR INTACT WITH ALARMS SET. O2 2 L BNC INTACT. PT IS CONFUSED AND FORGETFUL AT TIMES. ORIENTED X1-2 THIS SHIFT. ATTEMPTED TO REOIENT PATIENT WITH EACH INTERACTION WITH HIM. VSS AND NO ACUTE CHANGES DURING SHIFT. CARBAJAL INTACT AND PATENT DRAINING NEY URINE TO BEDSDIE BAG. WILL CONTINUE TO MONITOR
--- NOTE | 2018-08-10 14:54 | NUR ---
Faxed updated info to [facility], they are able to accept Pt back to [facility] this weekend, if he is medically stable for dc. p: [phone] f:[phone]
--- NOTE | 2018-08-10 17:37 | NUR ---
PT WORKED WITH PT/OT TODAY AND WAS UP TO CHAIR. PT TOLERATED DIET AND FAMILY HELPED WITH FEEDING PT WHO WAS HOB 90 DEGREES FOR ALL MEAL. WILL CONTINUE TO ASSESS.
[2018-08-11] VITALS: BP 94/43
--- NOTE | 2018-08-11 03:30 | NUR ---
INITAL ASSESSMENT PT RR 41 O2 SAT 95% ON 2 LITERS NC. RESPIRATORY HAD JUST FINISHED RESPIRATORY TX. ALPRAZOLAM GIVEN. PT REPOSITIONED. WITH IN 30 MIN PT RR DOWN TO 23. TURN Q 2 HRS. TELEMETRY SHOWS SR. AK PAD FOR BACK PAIN. ONE EPISOID WHERE PT SB IN THE 50S. PT AROUSED AND BACK UP TO 70S.
[2018-08-11 04:00] VITALS: BP 114/43
--- NOTE | 2018-08-11 05:09 | NUR ---
PT WENT BACK DOWN TO SB 40S-50S. DR MORALES NOTIFIED, ABGS, CBC, CMP PCXRAY, NS BOLUS 500MLS ORDERED. (DONE)
[2018-08-11 05:15] LABS: HEMATOCRIT 26.2 % (42.0-52.0); HEMOGLOBIN 8.7 gm/dL (14.0-18.0); MCH 30.1 pg (26.0-34.0); MCHC 33.4 g/dL (28.0-37.0); MCV 90.2 fL (80.0-100.0); MPV 8.4 fl. (7.2-11.1); RBC 2.9 mil/uL (4.50-6.00); RDW-CV 16.4 % (10.5-14.5); WBC 8.6 thou/uL (4.0-11.0)
[2018-08-11 05:35] LABS: PCO2 34.4 mmHg (35.0-45.0); PO2 64.8 mmHg (75.0-100.0); pH 7.469 (7.340-7.450)
[2018-08-11 05:54] LABS: ALBUMIN 1.6 g/dL (3.4-5.0); CALCIUM 7.6 mg/dL (8.5-10.1); CREATININE 0.9 mg/dL (0.6-1.3); TOTAL BILIRUBIN 0.5 mg/dL (<0.1-1.0); TOTAL PROTEIN 4.2 g/dL (6.4-8.2)
--- NOTE | 2018-08-11 06:08 | NUR ---
PT'S LABS BACK. UNREMARKABLE. ABGS BACK. PO2 64.8. O2 INCREASED TO 4 LITERS NC. PCXRAY UNCHANGED FROM LAST ONE. NS BOLUS INFUSING. HR SR 67.
[2018-08-11 06:16] LABS: POTASSIUM 2.9 mmol/L (3.5-5.1)
--- NOTE | 2018-08-11 06:39 | NUR ---
AM K LEVEL BACK AT 2.9. 40MEQ GIVEN.
[2018-08-11 12:00] VITALS: BP 120/51
[2018-08-11 16:05] VITALS: BP 127/58
--- NOTE | 2018-08-11 17:21 | NUR ---
COMPLETED MRI SCREEN FORM FOR MONDAY WHILE FAMILY IS VISITING. PT WORKEN WITH PT TODAY AND TOLERATING DIET. CARBAJAL REMAINS IN PLACE.
[2018-08-11 20:00] VITALS: BP 130/68
[2018-08-11 23:55] VITALS: BP 143/68
[2018-08-12 03:55] VITALS: BP 163/68
--- NOTE | 2018-08-12 04:45 | NUR ---
PT CARE ASSUMED AT 1930. SAT MAINTAINED IN KS. ORIENTED TO HIMSELF. CALL LIGHT WITHIN REACH AND BED IN LOW POSITION. DENIES PAIN AND SOB. HOURLY ROUNDING DONE FOR PT SAFETY.
[2018-08-12 05:13] LABS: ABSOLUTE EOSINOPHILS 0.2 thou/uL (0.0-0.7); ABSOLUTE LYMPHOCYTES 1.1 thou/uL (0.8-5.3); ABSOLUTE MONOCYTES 0.6 thou/uL (0.0-1.2); ABSOLUTE NEUTROPHILS 8.1 thou/uL (1.6-8.1); BASOPHILS 0.1 %; EOSINOPHILS 2.2 %; HEMOGLOBIN 9.3 gm/dL (14.0-18.0); LYMPHOCYTES 10.9 %; MCH 29.8 pg (26.0-34.0); MCHC 33.1 g/dL (28.0-37.0); MONOCYTES 6.4 %; MPV 8.8 fl. (7.2-11.1); NUCLEATED RBCS 0 /100WBC; PLATELET COUNT* 185 thou/uL (150-400); POLYS 80.4 %; RBC 3.11 mil/uL (4.50-6.00); RDW-CV 16.8 % (10.5-14.5); WBC 10.1 thou/uL (4.0-11.0)
[2018-08-12 05:50] LABS: CALCIUM 7.8 mg/dL (8.5-10.1); CREATININE 0.8 mg/dL (0.6-1.3); MAGNESIUM 1.8 mg/dL (1.8-2.4); POTASSIUM 3.2 mmol/L (3.5-5.1)
[2018-08-12 07:42] VITALS: BP 148/63
[2018-08-12 12:09] VITALS: BP 108/47
--- NOTE | 2018-08-12 16:01 | NUR ---
ASSUMED CARE OF PT AROUND 0730 THIS AM. REFER TO ASSESSMENT. PT SOMEWHAT PROGRESSING TOWARDS GOALS THIS SHIFT. DIFFICULT TO ASSESS ORIENTATION D/T GARBLED SPEECH. POTASSIUM AND MAG REPLACED THIS SHIFT. PT NOTED TO HAVE SMALL 11 BEAT RUN V-TACH AND WAS ASYMPTOMATIC. VSS. TELE SB TO SR. NO OTHER CONCERNS AT THIS TIME. CLWR. WCTM.
[2018-08-12 16:30] VITALS: BP 110/68
[2018-08-12 19:40] VITALS: BP 154/73
[2018-08-13 00:22] VITALS: BP 132/66
[2018-08-13 04:00] VITALS: BP 153/78
--- NOTE | 2018-08-13 05:12 | NUR ---
PT CARE ASSUMED AT 1930. SAT MAINTAINED IN ME. PT IS DISORIENTED. BECAME COMBATIVE. HOURLY ROUNDING DONE FOR PT SAFETY.
[2018-08-13 05:44] LABS: CALCIUM 7.9 mg/dL (8.5-10.1); CREATININE 0.8 mg/dL (0.6-1.3); POTASSIUM 3.7 mmol/L (3.5-5.1)
--- NOTE | 2018-08-13 08:30 | NUR ---
ASSUMED PT. CARE AND RECEIVED REPORT AT 0730. PT A/OX TO SELF, VSS, MONITOR ON TRACING SR. PT. C/O MINOR PAIN TO BACK, UNABLE TO RATE. ON 1L NC @ 96%. FULL ASSESSMENT COMPLETED, REFER TO CHARTING. PT. DAUGHTER AT BEDSIDE DURING ASSESSMENT. STATES PT. BASELINE IS 3L NC AT SNF. CALL LIGHT IN REACH, WILL CONTINUE WITH PLAN OF CARE.
--- NOTE | 2018-08-13 09:00 | NUR ---
PT. ASSISTED WITH FEEDING THIS MORNING. PT. COUGHING ON MULTIPLE ITEMS OF ORAL INTAKE, SOLID OR LIQUID, SLOW RESPONSE TO SWALLOW.
--- NOTE | 2018-08-13 10:40 | NUR ---
KALEB IN SPEECH THERAPY CONTACTED, PT. COUGHING ON ALL INTAKE. WILL BE DOWN TO REEVALUATE AROUND LUNCH TIME.
[2018-08-13 12:00] VITALS: BP 93/47
[2018-08-13 15:52] VITALS: BP 131/59
--- NOTE | 2018-08-13 16:09 | NUR ---
RECEIVED CONSULT FOR INPATIENT ACUTE REHAB. WILL CONTINUE TO FOLLOW PT WHILE IN HOSPITAL. THANK YOU FOR THE REFERRAL.
--- NOTE | 2018-08-13 16:14 | NUR ---
PT IS TO BE NPO 2' CHANGES IN ALERTNESS/RESPONSIVENESS STATUS. PT EXHIBITED PROLONGED BOLUS HOLDING AND REQUIRED MAX VERBAL CUES/PROMPTS TO SWALLOW. WILL COMPLETE DAILY RE-EVALUATIONS.
--- NOTE | 2018-08-13 18:47 | NUR ---
POST BREAKFAST PT. HAD PERIOD OF DECREASED RESPONSIVENESS FOR APPROX. 4 HOURS. PER PT. DAUGHTER HE HAS EXHIBITED THESE SYMPTOMS ON OTHER DAYS WELL. DR. OREILLY ON UNIT AND NOTIFIED. PT. SCHEDULED FOR AND COMPLETED MRI THIS SHIFT. PT. MORE ALERT THIS EVENING, ATTEMPTING TO COMMUNICATE, HOWEVER SPEECH IS VERY HARD TO UNDERSTAND STILL. DISCUSSED MEDICATION LIST WITH DAUGHTER AND ANSWERED QUESTIONS. HOURLY ROUNDING COMPLETED THROUGH OUT THE DAY FOR PT. SAFETY.
[2018-08-13 20:00] VITALS: BP 147/69
[2018-08-14] VITALS (79 sets, daily range): BP systolic 72–143; BP diastolic 36–74
--- NOTE | 2018-08-14 02:58 | NUR ---
INITAL ASSESSMENT PT ALERT ATTEMPTING TO COMMUNICATE. ANSWERING SIMPLE QUESTIONS. DR OREILLY NOTIFIED RE: PT MEDICATIONS. ORDER TO GIVE MEDS IF PT ALERT AND CRUSHED IN PUDDING. PT DID OKAY WITH MEDS. NO POCKETING OR CHOKING. TELEMETRY SHOWS SR/SB. TURNING Q 2 HRS.
[2018-08-14 05:40] LABS: ABSOLUTE LYMPHOCYTES 0.6 thou/uL (0.8-5.3); ABSOLUTE MONOCYTES 0.6 thou/uL (0.0-1.2); ABSOLUTE NEUTROPHILS 7.1 thou/uL (1.6-8.1); BASOPHILS 0.2 %; EOSINOPHILS 0.3 %; HEMATOCRIT 26.1 % (42.0-52.0); HEMOGLOBIN 8.8 gm/dL (14.0-18.0); LYMPHOCYTES 7.4 %; MCH 30.1 pg (26.0-34.0); MCHC 33.5 g/dL (28.0-37.0); MCV 89.8 fL (80.0-100.0); MONOCYTES 7.4 %; MPV 8.6 fl. (7.2-11.1); NUCLEATED RBCS 0 /100WBC; PLATELET COUNT* 189 thou/uL (150-400); POLYS 84.7 %; RBC 2.91 mil/uL (4.50-6.00); WBC 8.3 thou/uL (4.0-11.0)
[2018-08-14 05:59] LABS: CALCIUM 7.8 mg/dL (8.5-10.1); CREATININE 0.9 mg/dL (0.6-1.3); POTASSIUM 3.5 mmol/L (3.5-5.1)
--- NOTE | 2018-08-14 12:42 | NUR ---
ASSUMED CARE OF PT AROUND 0730 THIS AM. REFER TO ASSESSMENT. PT UNABLE TO FOLLOW COMMANDS THIS AM. NO MEDS GIVEN. PT NPO. PT TACHYPNEIC ON ASSESSMENT. PT SHAKES HEAD YES FOR PAIN. NEW ORDER OBTAINED FOR IV PAIN MEDICATION. APPEARED TO SLIGHTLY HELP, BUT CONTINUES TO BE TACHYPNEIC, AND TACHYCARDIC. PHYSICIAN NOTIFIED AND NEW ORDERS OBTAINED TO TRANSFER TO ICU. BEDSIDE REPORT GIVEN TO RECEIVING RN. DAUGHTER NOTIFIED. NO OTHER CONCERNS AT THIS TIME.
[2018-08-14 13:13] LABS: BE -0.8 mmol/L (-2 to +3); PCO2 27.3 mmHg (35.0-45.0); PO2 60.9 mmHg (75.0-100.0); pH 7.507 (7.340-7.450)
--- NOTE | 2018-08-14 13:48 | NUR ---
ATTEMPTED TO SEE PT FOR SWALLOW TREATMENT. PT UNABLE TO SAFELY TOLERATE PO TRIALS 2' MENTAL STATUS, LEVEL OF RESPONSIVENESS, AND PAIN. CONTINUE NPO STATUS.
--- NOTE | 2018-08-14 16:35 | NUR ---
PT TRANSFER FROM [facility] TO ICU BED1 AT 1230. PT RESPIRATORY RATE 35-40. NO COMPLAINTS OF PAIN. PT RESPONSIVE TO SIMPLE QUESTIONS. SINUS TACHYCARDIA ON THE MONITOR WHEN ARRIVED TO ROOM. PT CURRENTLY SINUS RHYTHM WITH HR IN 80'S RESPIRATORY RATE IN LOW 20S. PT IS FEBRILE AND BP IS HYPOTENSIVE. ORDER RECEIVED FOR LEVOPHED IF NEEDED AND LACTIC ACID NOW. CLONIDINE PATCH TAKEN OFF OF RIGHT SHOULDER. WILL CONTINUE TO MONITOR.
[2018-08-15] VITALS (38 sets, daily range): BP systolic 81–150; BP diastolic 34–83
[2018-08-15 03:48] LABS: HEMOGLOBIN 8.9 gm/dL (14.0-18.0); MCH 29.5 pg (26.0-34.0); MCHC 33.1 g/dL (28.0-37.0); MPV 8.3 fl. (7.2-11.1); NUCLEATED RBCS 0 /100WBC; RBC 3.03 mil/uL (4.50-6.00); RDW-CV 17.6 % (10.5-14.5); WBC 22.3 thou/uL (4.0-11.0)
[2018-08-15 03:54] LABS: CALCIUM 7.7 mg/dL (8.5-10.1); CREATININE 1.2 mg/dL (0.6-1.3); POTASSIUM 3.3 mmol/L (3.5-5.1)
[2018-08-15 04:01] LABS: PLATELET COUNT* 273 thou/uL (150-400)
[2018-08-15 05:54] LABS: ABSOLUTE LYMPHOCYTES 0.4 thou/uL (0.8-5.3); ABSOLUTE MONOCYTES 0.4 thou/uL (0.0-1.2); ABSOLUTE NEUTROPHILS 21.4 thou/uL (1.6-8.1); PLATELET ESTIMATE ADEQUATE
[2018-08-15 05:55] LABS: ANISOCYTOSIS 1+; POIKILOCYTOSIS 1+
--- NOTE | 2018-08-15 06:24 | NUR ---
REPORT RECEIVED FROM OFF GOING SHIFT AND CARE ASSUMMED. PT WAS VERY CONFUSED AND LETHARGIC AT BEGINNING OF SHIFT BUT IMPROVED AROUND 2129. MONITORS ITNACT AND ALARMS SET. CARBAJAL INTACT AND PATENT DRAINING YAMBER URINE TO BEDSIDE BAG. PT SLEPT WELL THIS SHIFT. VSS AND NO ACUTE CHANGES DURIGN SHIFT WILL CONTINUE OT MONITOR
--- NOTE | 2018-08-15 10:00 | NUR ---
PT TRANSFERRED TO ICU YESTERDAY. ON LEVO GTT, NPO. SPOKE WITH CORINNE AT [facility] AND UPDATED HER ON PT'S CONDITION. NO FAMILY IN THE ROOM AT THIS TIME. WILL CONTINUE TO FOLLOW.
--- NOTE | 2018-08-15 18:33 | NUR ---
PT ASSESSMENT CHARTED. VSS THROUGHOUT SHIFT. NO COMPLAINTS OF PAIN. Q2H TURNS TO MAINTAIN SKIN INTEGRITY. NPO THIS MORNING UNTIL PATIENT WAS FULLY AWAKE. LEAITTER WAS ABLE TO GIVE CRUSHED PILLS WITH PUDDING TO PATIENT. HE WAS STILL HAVING DIFFICULTY WITH DELAYED SWALLOWING. THIS INFORMATION WAS GIVEN TO MD AND A NEW ST ORDER WAS PLACED AND XRAY IF NEEDED. SPEECH THERAPY SAW PATIENT AND RECOMMENDED FOR HIM TO RESUME DIET OF PUREED, NECTAR THICK LIQUIDS, NO STRAWS, AND SIPS BY SPOON ONLY. PATIENT TITRATED FROM 5L DOWN TO 3L NC. NO OTHER COMPLAINTS DURING THE SHIFT. PATIENT TO TRANSFER TO ROOM 214.
[2018-08-16 00:22] VITALS: BP 125/59
[2018-08-16 04:00] VITALS: BP 155/80
--- NOTE | 2018-08-16 06:18 | NUR ---
VITALS WNL. SEE MAR. SEE CHARTING. FALL PRECAUTIONS IN PLACE. HOURLY ROUNDING FOR SAFETY.
[2018-08-16 08:47] VITALS: BP 178/85
[2018-08-16 11:38] LABS: ABSOLUTE LYMPHOCYTES 0.4 thou/uL (0.8-5.3); ABSOLUTE MONOCYTES 0.4 thou/uL (0.0-1.2); ABSOLUTE NEUTROPHILS 10.1 thou/uL (1.6-8.1); EOSINOPHILS 0.1 %; HEMOGLOBIN 9.1 gm/dL (14.0-18.0); LYMPHOCYTES 3.9 %; MCH 30.2 pg (26.0-34.0); MCHC 33.8 g/dL (28.0-37.0); MCV 89.2 fL (80.0-100.0); MONOCYTES 3.7 %; MPV 8.1 fl. (7.2-11.1); NUCLEATED RBCS 0 /100WBC; PLATELET COUNT* 229 thou/uL (150-400); POLYS 92.3 %; RBC 3.03 mil/uL (4.50-6.00); RDW-CV 17.4 % (10.5-14.5); WBC 10.9 thou/uL (4.0-11.0)
[2018-08-16 11:49] LABS: CALCIUM 8.3 mg/dL (8.5-10.1); POTASSIUM 3.8 mmol/L (3.5-5.1)
[2018-08-16 12:51] VITALS: BP 178/85
[2018-08-16 13:04] VITALS: BP 134/64
[2018-08-16] MEDS ORDERED: CATAPRES-TTS 11 EACH TRANSDERM (13:10)
--- NOTE | 2018-08-16 13:13 | NUR ---
Pt discharging back to [facility] today. Faxed dc orders. Chart copied. Nurse report number is [phone]. Updated dtr. Ambulance set up for 4pm.
[2018-08-16] MEDS ORDERED: PULMICORT0.5 MG/22 INH (13:23)
[2018-08-16] MEDS ORDERED: RISPERDAL0.25 MG PO (13:25)
[2018-08-16] MEDS ORDERED: SENOKOT-S1 TA2 PO (13:27)
--- NOTE | 2018-08-16 13:57 | NUR ---
ASSUMED CARE OF PT AROUND 0730 THIS AM. REFER TO ASSESSMENT. PT GARBLED SPEECH AND DIFFICULT TO UNDERSTAND. HAS DC ORDERS. PHYSICIAN DISCUSSED PLAN OF CARE WITH DAUGHTER - DPOA. CASE MANAGEMENT SET UP TRANSPORATION TO PT'S FACILITY. NO OTHER CONCERNS AT THIS TIME. CLWR. WCTM.
--- NOTE | 2018-08-16 16:06 | NUR ---
AMBULANCE TRANSPORATION HERE AT THIS TIME
--- NOTE | 2018-08-16 16:15 | NUR ---
REPORT GIVEN TO GERALDO CONTRERAS AT THIS TIME. ALL QUESTIONS ADDRESSED.
--- NOTE | 2018-08-20 16:31 | CON ---
[address] [address] CONSULTATION Name: NICOLASTERENCE M Room: [address] IN .R.#: [id number] Admission: 08/01/18 Attend Phys: Azeem Floyd MD Discharge: 08/16/18 Date of : 40 Report #: [id number] THIS REPORT FOR: //name// CC: TARIK physician/PCP Azeem Floyd DATE OF SERVICE: 08/08/2018 HISTORY OF PRESENT ILLNESS: This is a 78-year-old male patient who was not able to provide any history. I talked to the patient's family. They provided some history and I talked to the nurses looking after this patient and they provided most of the history. They indicated that last night this patient had an episode where his speech got slurred and he had weakness on the right side. The symptom came spontaneously and then resolved spontaneously. Duration is not clear because the patient is not able to give any good history in that regard. He had no headache associated with that. They did a CT scan of the head, which was reviewed, which demonstrate a severe atrophy. REVIEW OF SYSTEMS: Indicate the patient had an episode of TIA some years ago. Daughter does not remember the symptoms. He also does not know the workup, which was done. It is not clear if the episode was similar to this episode or not. The patient has a history of COPD and this time, he was admitted with respiratory problem. Last time when he had an episode of TIA, he was also admitted with respiratory problem, but it is not clear if the episode was similar or not. It looks like this patient has a pretty involved course recently. At one time, he was living in independent living and he had hip problems that put him in a residential unit and a supervised living. He continued to be in supervised living. It looks like his long-term memory is somewhat preserved but short-term memory is markedly affected. It has been more so after the episode of respiratory difficulty he had and for which he was admitted. Record indicates he also had a low blood pressure and that would have aggravated his encephalopathy. REVIEW OF SYSTEMS: A 14-point review of system was carried out and this was his relevant 14-point review of system. PAST MEDICAL HISTORY: Positive for COPD and hip fracture. FAMILY HISTORY: Negative for any early age stroke. SOCIAL HISTORY: He lives in a supervised living. PHYSICAL EXAMINATION: NEUROLOGICAL: Indicates he is alert. He is responsive. He thinks it is February. He is unable to name the hospital. He can name the president. His speech looks intact. His cranial nerve examination [place] [address] CONSULTATION Name: TERENCE VALENZUELA Room: [address] IN M.R.#: [id number] Admission: 08/01/18 Attend Phys: Azeem Floyd MD Discharge: 08/16/18 Date of : 40 Report #: [id number] appear to be any focality. He does not cooperate with the fundus examination. He is weak on the right side when compared to the left side, but he can move both sides. He is pretty significantly weak in all 4 extremities. I tried to do the position sense on him. He did not understand the instructions. His reflexes are diminished in a generalized fashion. He could not cooperate with the fundus examination and he is not able to understand the instructions for cerebellar sign. LUNGS: He still appeared to be in respiratory difficulty and has rhonchi on both sides. CARDIAC: Examination is unremarkable. HEENT: His vision and hearing looks adequate. NECK: He does not have any thyroid masses. EXTREMITIES: Pulses are difficult to palpate. VITAL SIGNS: His blood pressure is 158/61, respiration is 18, pulse is 93 and temperature is 97.7. LABORATORY DATA: His white count is 7.8. RADIOLOGICAL DATA: He did have a CT scan of the head, which was reviewed, which showed a lot of atrophy. IMPRESSION AND RECOMMENDATIONS: This patient appeared to have significant dementia. His short-term memory is quite poor. That will correlate with the patient's CT finding of significant atrophy. He also appeared to have a transient ischemic attack with speech difficulty and right-sided weakness. He could have had a stroke also but it will be difficult to do the further workup in that regard. I do not believe he will be able to stay in the MRI for an hour because of his breathing difficulty and his dementia. MRI is unlikely to change the treatment. Therefore, I discussed the alternative with the patient's daughter and presently, we will just do a carotid Doppler and see what that shows. Time spent 50 minutes, more than half of that time counseling and coordinating as above. <ELECTRONICALLY SIGNED> By: Benedict Bobo MD 08/20/18 1631 1521 [id number] Bobo MD /nt
== END 2018-08-16 16:17 | DRG 870 ==
LOC: M.ERS 06:13 → M.ICU 06:38 → M.TBA-ER 06:38 → M.ICU 08:45 → M.2W 08-07 17:38 → M.ICU 08-14 12:40 → M.2W 08-15 19:34
PROVIDERS: Internal Medicine; Internal Medicine Pulmonary Disease; Personal Emergency Response Attendant; ADMIT Family Medicine
PROC: 5A1955Z Respiratory Ventilation, Greater than 96 Consecutive Hours (ICD-10-PCS; principal; 2018-08-01)
PROC: 02HV33Z Insertion of Infusion Device into Superior Vena Cava, Percutaneous Approach (ICD-10-PCS; principal; 2018-08-01)
PROC: 0BH17EZ Insertion of Endotracheal Airway into Trachea, Via Natural or Artificial Opening (ICD-10-PCS; principal; 2018-08-01)
DX: A41.9 Sepsis, unspecified organism (principal); J15.6 Pneumonia due to other Gram-negative bacteria; J96.22 Acute and chronic respiratory failure with hypercapnia; J96.21 Acute and chronic respiratory failure with hypoxia; I21.A1 Myocardial infarction type 2; R65.21 Severe sepsis with septic shock; J69.0 Pneumonitis due to inhalation of food and vomit; J44.1 Chronic obstructive pulmonary disease with (acute) exacerbation; N17.9 Acute kidney failure, unspecified; E87.0 Hyperosmolality and hypernatremia; G45.9 Transient cerebral ischemic attack, unspecified; J44.9 Chronic obstructive pulmonary disease, unspecified; Y95 Nosocomial condition; F03.90 Unspecified dementia, unspecified severity, without behavioral disturbance, psychotic disturbance, mood disturbance, and anxiety; F32.9 Major depressive disorder, single episode, unspecified; F41.9 Anxiety disorder, unspecified; D64.9 Anemia, unspecified; R13.10 Dysphagia, unspecified; I48.91 Unspecified atrial fibrillation; Z66 Do not resuscitate; K59.00 Constipation, unspecified; Z87.891 Personal history of nicotine dependence; Z99.81 Dependence on supplemental oxygen; Z87.81 Personal history of (healed) traumatic fracture; Z86.73 Personal history of transient ischemic attack (TIA), and cerebral infarction without residual deficits

== ENCOUNTER 2019-02-10 10:42 | Inpatient (IN) | payer MEDICARE, OTHER, MEDICAID ==
[2019-02-10] VITALS (20 sets, daily range): BP systolic 91–140; BP diastolic 41–80
[~2019-02-10] VITALS: Ht 177.8 cm; Wt 53.1 kg
[~2019-02-10 10:42] MED LIST changes: +ACCUNEB SO1.25 MG/1 INH; +BUSPIRONE HCL7.5 MG PO; +CATAPRES-TTS 11 EACH TRANSDERM; +CENTRUM SILVER1 EAC4 PO; +COZAAR 25 MG TA25 M1 PO; +MUCINEX600 MG PO; +PROTONIX40 M1 PO; +PULMICORT0.5 MG/22 INH; +SENOKOT-S1 TA2 PO; +SYMBICORT160 MCG/4. INH; +VITAMINC500 PO; +XANAX1 MG PO
[2019-02-10] MEDS ORDERED: VOLTAREN GEL 1100 G1 TOP (11:07)
[2019-02-10] MEDS ORDERED: EXTINA50 GM TOP (11:08)
[2019-02-10] MEDS ORDERED: SLOW FE142 MG PO (11:08)
[2019-02-10 11:09] LABS: ABSOLUTE BASOPHILS 0.1 thou/uL (0.0-0.2); ABSOLUTE EOSINOPHILS 0.2 thou/uL (0.0-0.7); ABSOLUTE MONOCYTES 0.9 thou/uL (0.0-1.2); ABSOLUTE NEUTROPHILS 9.8 thou/uL (1.6-8.1); BASOPHILS 0.6 %; EOSINOPHILS 1.3 %; HEMATOCRIT 32.4 % (42.0-52.0); HEMOGLOBIN 10.8 gm/dL (14.0-18.0); LYMPHOCYTES 8.8 %; MCH 29.2 pg (26.0-34.0); MCHC 33.3 g/dL (28.0-37.0); MCV 87.7 fL (80.0-100.0); MONOCYTES 7.6 %; MPV 6.8 fl. (7.2-11.1); NUCLEATED RBCS 0 /100WBC; PLATELET COUNT* 404 thou/uL (150-400); POLYS 81.7 %; RDW-CV 15.1 % (10.5-14.5)
[2019-02-10] MEDS ORDERED: LAMOTRIGINE250 MG PO (11:09)
[2019-02-10] MEDS ORDERED: AUGMENTIN 875-1 EACH PO (11:09)
[2019-02-10] MEDS ORDERED: FLEXERIL PO (11:10)
[2019-02-10] MEDS ORDERED: LASIX 40 MG TAB40 MG PO (11:10)
[2019-02-10] MEDS ORDERED: PROBIOTIC1 EAC7 PO (11:11)
[2019-02-10] MEDS ORDERED: DORYX MPC120 MG PO (11:11)
[2019-02-10 11:16] LABS: APTT 28.1 Seconds (25.0-31.3); CALCIUM 9.3 mg/dL (8.5-10.1); CREATININE 1.7 mg/dL (0.6-1.3); INR 1.1; PROTIME 10.8 Seconds (9.20-11.50)
[2019-02-10 11:27] LABS: ALBUMIN 2.8 g/dL (3.4-5.0); TOTAL BILIRUBIN 0.6 mg/dL (<0.1-1.0)
--- NOTE | 2019-02-10 11:29 | NUR ---
PT CONTRACTED. FAMILY TOOK PT OFF OF HOSPICE TODAY.
[2019-02-10 18:18] LABS: URINE BLOOD 3+ (Negative); URINE CLARITY CLOUDY; URINE COLOR YELLOW; URINE GLUCOSE-RANDOM NEGATIVE (Negative); URINE KETONES 1+ (Negative); URINE LEUKOCYTES-REFLEX TRACE (Negative); URINE NITRITE-REFLEX NEGATIVE (Negative); URINE PROTEIN 2+ (Negative); URINE SPECIFIC GRAVITY >= 1.030 (1.005-1.030); URINE UROBILINOGEN 0.2 E.U./dl (0.2-1.0)
[2019-02-10 18:20] LABS: ICTOTEST (BILI CONFIRMATORY) Negative (Negative); URINE BILIRUBIN 1+ (Negative)
[2019-02-10 18:30] LABS: SQUAMOUS 0-3 Few /LPF (0-3); URINE RBC >20 Many /HPF (0-2)
[2019-02-10 18:31] LABS: URINE WBC-REFLEX >25 Many /HPF (0-5)
[2019-02-10 18:38] LABS: CRYSTALS None Seen /LPF (None Seen); HYALINE CASTS 0-3 Few /LPF (None Seen); MUCUS 0-3 Light strn/LPF (None Seen)
[2019-02-10 18:41] LABS: BACTERIA-REFLEX >30 Many /HPF (None Seen)
--- NOTE | 2019-02-10 18:53 | NUR ---
THIS PARTY CHIEF ASSUMED CARE OF PT TODAY AT 1430 AFTER RECEIVING SHIFT REPORT FROM ER. PT ADMITTED FROM [facility] WITH SEPSIS DNR DNI. PT HAS A CARBAJAL IN PLACE LOW URINE OUTPUT 50ML OUTPUT OVER SIX HOURS UA COMPLETE. DR. MORALES ORDERED BEDSIDE SWALLOW PT UNABLE TO AROUSE UNSAFE TO SWALLOW AT THIS TIME DO TO AMS AND RISK OF ASPIRATION FAMILY IN ROOM THROUGH PT RESTING IN ROOM
[2019-02-11] VITALS (32 sets, daily range): BP systolic 97–161; BP diastolic 47–84
--- NOTE | 2019-02-11 05:46 | NUR ---
PT RESTLESS AND AGITATED ALL NOC SHIFT. PT DC ONE HIS IV. PT RESPOSITIONED FOR COMFORT BUT ONLY ABLE TO LAY ON BACK AND LEFT SIDE. PT INCREASING SOUNDING WET THROUGHOUT THE NIGHT PER RN & RT. FLUIDS PAUSED AT THE MOMENT. ESBL + ON URINE CULTURE SHEET SENT FROM [facility]. DR. DAVENPORT WITH CHANGE ABX DEPENDING ON ESBL RESULTS AND WILL SEE PT THIS AM. CONTINUE WITH PLAN OF CARE
[2019-02-11 09:00] LABS: ALBUMIN 2.7 g/dL (3.4-5.0); CALCIUM 8.9 mg/dL (8.5-10.1); CREATININE 1.6 mg/dL (0.6-1.3); POTASSIUM 4.3 mmol/L (3.5-5.1); TOTAL BILIRUBIN 0.5 mg/dL (<0.1-1.0); TOTAL PROTEIN 6.9 g/dL (6.4-8.2)
--- NOTE | 2019-02-11 10:22 | EKG ---
[place] [address] ELECTROCARDIOGRAM REPORT Name: TERENCE VALENZUELA Room: [address] ADM IN M.R.#: [id number] Admission: 02/10/19 Attend Phys: Jeff Fuentes Discharge: Date of : 40 Report #: [id number] THIS REPORT FOR: //name// [facility] ED Test Date: 2019-02-10 Test Time: 10:58:10 Pat Name: TERENCE VALENZUELA Department: Room: [facility] Gender: M Hosted Services Analyst: MS : 1940 Requested By: Ron Sparrow Order Number: [id number] MD: Tanner Fay Measurements Intervals Milnor Rate: 107 P: 81 FL: 149 QRS: -43 QRSD: 85 T: 92 QT: 348 QTc: 465 Interpretive Statements Sinus tachycardia Left anterior fascicular block Nonspecific repol abnormality, diffuse leads Compared to ECG 08/06/2018 09:02:59 Left anterior fascicular block now present Sinus bradycardia no longer present Electronically Signed On 02-11-2019 10:22:31 [employer] by Tanner Fay [email or web address] <ELECTRONICALLY SIGNED> By: Tanner Fay MD, FACC 02/11/19 1022 1058 1058 Tanner Fay MD, [facility] /EPI
--- NOTE | 2019-02-11 14:25 | NUR ---
INTERDISICPLINARY ROUNDS: PT ADMITTED WITH SEPSIS FROM [facility]. SPOKE WITH CORINNE/[facility]. SHE STATED PT HAD JUST BEEN ADMITTED TO [facility] ON MON. REVOKED TO BE ADMITTED. CALL TO PT'S DTR/FESTUS, HAD TO LEAVE MESSAGE.
--- NOTE | 2019-02-11 14:59 | 2DMMODE ---
[place] [address] 2 D/M-MODE ECHOCARDIOGRAM Name: NICOLASTERENCE Franci Room: [address] IN [facility]#: [id number] Admission: 02/10/19 Attend Phys: Jeff hernandez Sa Discharge: Date of : 40 Date of Service: 02/11/19 1459 Report #: [id number] THIS REPORT FOR: //name// APPROVED REPORT Study performed: 02/11/2019 09:51:39 EXAM: Comprehensive 2D, Doppler, and color-flow Echocardiogram Patient Location: In-Patient Room #: 006 Status: routine BSA: 1.64 HR: 130 bpm BP: 137/70 mmHg Rhythm: NSR Other Information Technically limited study due to uncooperative patient. Indications Dyspnea 2D Dimensions IVSd: 10.46 (7-11mm) LVOT Diam: 21.64 (18-24mm) LVDd: 35.47 mm PWd: 9.80 (7-11mm) LVDs: 22.35 (25-40mm) Aortic Root: 34.49 mm Aortic Valve AoV Peak Jamar.: 0.97 m/s AO Peak Gr.: 3.73 mmHg LVOT Max P.27 mmHg AO Mean Gr.: 2.14 mmHg LVOT Mean P.85 mmHg LVOT Max V: 0.90 m/s AO V2 VTI: 11.29 cm LVOT Mean V: 0.65 m/s MAHENDRA (VTI): 3.76 cm2 LVOT V1 VTI: 11.53 cm Pulmonary Valve PV Peak Jamar.: 0.88 m/s PV Peak Gr.: 3.10 mmHg Tricuspid Valve RAP Estimate: 5.00 mmHg TR Peak Gr.: 33.00 mmHg RVSP: 38.00 mmHg PA Pressure: 38.00 [place] [address] 2 D/M-MODE ECHOCARDIOGRAM Name: TERENCE VALENZUELA Room: [address] IN .R.#: [id number] Admission: 02/10/19 Attend Phys: Jeff hernandez Sa Discharge: Date of : 40 Date of Service: 02/11/19 1459 Report #: [id number] Left Ventricle The left ventricle is normal size. There is normal LV segmental wall motion. There is normal left ventricular wall thickness. Left ventricular systolic function is normal. The left ventricular ejection fraction is within the normal range. LVEF is 55-60%. This study is not technically sufficient to allow evaluation of the LV diastolic function. Right Ventricle The right ventricle is normal size. The right ventricular systolic function is normal. Atria The left atrium size is normal. The right atrium size is normal. Aortic Valve Moderate aortic valve sclerosis. No aortic regurgitation is present. Technically difficult to assess for stenosis. Mitral Valve The mitral valve is normal in structure. There is no mitral valve regurgitation noted. No evidence of mitral valve stenosis. Tricuspid Valve The tricuspid valve is normal in structure. Mild tricuspid regurgitation. Mild pulmonary hypertension. Pulmonic Valve The pulmonary valve is normal in structure. Mild pulmonic regurgitation. Great Vessels The aortic root is normal in size. IVC is normal in size and collapses >50% with inspiration. Pericardium There is no pericardial effusion. Left pleural effusion. <Conclusion> LVEF is 55-60%. There is normal LV segmental wall motion. This study is not technically sufficient to allow evaluation of [place] [address] 2 D/M-MODE ECHOCARDIOGRAM Name: TERENCE VALENZUELA Room: [address] IN ..#: [id number] Admission: 02/10/19 Attend Phys: Jeff hernandez Sa Discharge: Date of : 40 Date of Service: 02/11/191458 Report #: [id number] Mild tricuspid regurgitation. Mild pulmonary hypertension. Mild pulmonic regurgitation. <ELECTRONICALLY SIGNED> By: Luis Miguel Ewing MD, [facility] 02/11/191458 58 1459 Luis Miguel Ewing MD, FACC /INF
--- NOTE | 2019-02-11 18:44 | NUR ---
PT ALERT BUT NON VERBAL, GRIMACES AND MOANS. Q2 TURNS PROVIDED. HAD A BM x3. TYELENOL GIVEN ONCE FOR FEVER, FEVER SUBSIDED DURING THE DAY. ST ON THE MONITOR AND TACHYPNEIC, ON NC 5L/MIN. IV FLUIDS HELD. LASIX GIVEN EARLY IN THE MORNING. GOOD OUTPUT. OKAY FOR GROUND DIET PER ST. PT HAD SOME SIPS OF WATER AND SOME APPLE SAUCE DURING THE SHIFT.
[2019-02-12] VITALS (20 sets, daily range): BP systolic 80–111; BP diastolic 45–78
--- NOTE | 2019-02-12 07:05 | NUR ---
Pt is cooperative at times, but is usually resistant or combative with routine care (e.g. turns, lab draws, repositioning). Pt seems to recognize his name, but does not or cannot commnicate verbally. Pt had multiple small loose brown stools overnight. Turned about every 2 hours. LLE contracted and makes figure "4" with RLE. Padded bony prominences with each turn. Both IVs infiltrated overnight; new IV started to LLE. Pt would not cooperate with attempt at IV to either upper extremity. VSS though SBP soft at upper 80s to low 100s. Low grade fevers overnight, used fan temp control. Will continue to monitor.
[2019-02-12 07:37] LABS: HEMATOCRIT 31.5 % (42.0-52.0); HEMOGLOBIN 10.2 gm/dL (14.0-18.0); MCH 29.3 pg (26.0-34.0); MCHC 32.5 g/dL (28.0-37.0); RBC 3.5 mil/uL (4.50-6.00); RDW-CV 16.3 % (10.5-14.5); WBC 20.9 thou/uL (4.0-11.0)
[2019-02-12 07:50] LABS: ALBUMIN 2.6 g/dL (3.4-5.0); CALCIUM 9.3 mg/dL (8.5-10.1); CREATININE 1.8 mg/dL (0.6-1.3); POTASSIUM 4.2 mmol/L (3.5-5.1); TOTAL BILIRUBIN 0.7 mg/dL (<0.1-1.0); TOTAL PROTEIN 6.7 g/dL (6.4-8.2)
--- NOTE | 2019-02-12 08:05 | CON ---
[address] [address] CONSULTATION Name: TERENCE VALENZUELA Room: [address] IN M.R.#: [id number] Admission: 02/10/19 Attend Phys: Jeff Fuentes Discharge: Date of : 40 Report #: [id number] THIS REPORT FOR: //name// CC: Jeff Carranza DATE OF SERVICE: 02/11/2019 INFECTIOUS DISEASE CONSULTATION ATTENDING PHYSICIAN: Jeff Vang MD. REASON FOR EVALUATION: Complicated urinary tract infection due to Escherichia coli with extended spectrum beta-lactamase production. HISTORY OF PRESENT ILLNESS: Chart reviewed, patient examined. This is a 78-year-old gentleman with advanced lung disease, O2 requiring COPD, question degree of dementia as well who over recent days has been ill, lives in a facility, was felt to have a complicated urinary tract infection, culture revealed Escherichia coli with extended spectrum beta-lactamase production, had been placed on Augmentin for last couple of weeks, continued to worsen, had progressive encephalopathy and really unable to engage. No additional history taking from him. Evaluation still noted marked pyuria and low-grade temperature elevations. Chest x-ray reveals question of a basilar infiltrate. He was started on broad-spectrum antimicrobial therapy including piperacillin and tazobactam, vancomycin, and was given a dose of levofloxacin as well. He is currently in Intensive Care unit. He is on supplemental oxygen at 6 liters. ALLERGIES: None known. MEDICATIONS: Include vancomycin, budesonide, lorazepam, and hydralazine. PAST MEDICAL HISTORY: O2 requiring COPD, anxiety, degree of dementia, depression, has been on hospice. SOCIAL HISTORY: Former smoker, past heavy ethanol use, no illicit drug use. FAMILY HISTORY: Noncontributory. REVIEW OF SYSTEMS: Not obtainable. PHYSICAL EXAMINATION: GENERAL: He is lying in position. It is difficult to ascertain whether he has contractures. He has got left lower extremity in flexed position at the hip, lying on the right lateral side. He is continuously moaning. Seemingly, he does ____ make eye contact, moderate to marked distress, [place] [address] CONSULTATION Name: TERENCE VALENZUELA Room: [address] IN [facility]#: [id number] Admission: 02/10/19 Attend Phys: Jeff Fuentes Discharge: Date of : 40 Report #: [id number] ill, undernourished. VITAL SIGNS: Temperature earlier 100.7, pulse 122, respirations 45, blood pressure 137/70, saturation 91%. SKIN: Warm, dry. HEENT: Normocephalic. Extraocular muscles appear to be intact. NECK: Supple. LUNGS: Scattered coarse breath sounds. HEART: Regular, tachycardic. I do not appreciate murmur. ABDOMEN: Mild degree of guarding. It is I believe otherwise soft. There are no peritoneal signs. EXTREMITIES: Distal lower extremities do not have significant edema. GENITOURINARY: Deferred. RECTAL: Deferred. LABORATORY DATA: Prealbumin 11.4. Urinalysis described above, greater than 25 white cells, greater than 30 bacteria. Troponin less than 0.06. Chest x-ray, left lower lobe atelectasis or infiltrate with effusion. Electrolytes: Sodium 146, potassium 4.0, chloride 108, bicarbonate is 24, anion gap of 14, BUN and creatinine 19 and 1.7, glucose of 84, albumin of 2.8, total protein 7.0. LFTs unremarkable. Estimated GFR of 39. Lactic acid of 1.6. PT of 10.81, INR of 1.1. CBC: White count of 12.0, H and H 10.8 and 32.4, platelets of 404. Differential unremarkable. ASSESSMENT: Complicated urinary tract infection, may have secondary to extended spectrum beta-lactamase producing Escherichia coli. We will continue parenteral therapy utilizing carbapenem in this case. He is certainly quite debilitated and suspect may have a component of pneumonitis as well. He really has very little reserve at this point. I think it is reasonable to continue vancomycin. His prognosis appears quite guarded. <ELECTRONICALLY SIGNED> By: Carlos Fields MD 02/12/19 0805 [id number] Fields MD /nt
--- NOTE | 2019-02-12 12:17 | NUR ---
ICU rounds: Pt on contact iso for ESVL. Non verbal. Contracted on left side. Pt passed swallow rec:mechanical alt ground. Pt is a feeder and not eating much. [employer] Aut[employer]ody Repairer recommending Ensure. Pt doesn't follow commands. Waldron in place. Peripheral line. Spoke with revenue liaison, dtr has a better understanding of hospice and plans to continue at sd. Per Jelena at [place], they will review LTC referral. Following.
--- NOTE | 2019-02-12 19:20 | NUR ---
PT ALERT BUT NON VERBAL, SLIGHT IMPROVEMENT IN THE MENTATION, OPENS EYES ON COMMAND. ATE 20% OF HIS DINNER. PASSED VERY SMALL LOOSE BM x4. 1/2NS AT 125 MLS/HR. Q2 TURNS AND ORAL CARE DONE.
[2019-02-13] VITALS (26 sets, daily range): BP systolic 69–139; BP diastolic 41–72
--- NOTE | 2019-02-13 05:31 | NUR ---
VITALS STABLE, TEMP MAX 99.3F AXILLARY. PT NOT ORIENTED WHEN ALERT, DID RESPOND WITH A "YES" ONCE WHEN ASKED ABOUT PAIN. DOES NOT FOLLOW COMMANDS. PT VERY ANXIOUS AT TIMES, HOLDING TO THE RAILS OF BED AND SHAKING, SEEMS THOUGH HE IS SCARED HE'LL FALL OUT OF BED. REASSURANCE/REORIENTATION PROVIDED NEEDED. OTHERWISE UNEVENTFUL NIGHT. Q2 TURNS FOR SKIN INTEGRITY.
[2019-02-13 10:46] LABS: ABSOLUTE EOSINOPHILS 0.2 thou/uL (0.0-0.7); ABSOLUTE LYMPHOCYTES 1.7 thou/uL (0.8-5.3); ABSOLUTE MONOCYTES 1.2 thou/uL (0.0-1.2); ABSOLUTE NEUTROPHILS 13.1 thou/uL (1.6-8.1); BASOPHILS 0.3 %; EOSINOPHILS 1.2 %; HEMATOCRIT 28.4 % (42.0-52.0); HEMOGLOBIN 9.4 gm/dL (14.0-18.0); LYMPHOCYTES 10.7 %; MCH 29.5 pg (26.0-34.0); MCV 89.3 fL (80.0-100.0); MONOCYTES 7.3 %; MPV 7.1 fl. (7.2-11.1); NUCLEATED RBCS 0 /100WBC; POLYS 80.5 %; RBC 3.18 mil/uL (4.50-6.00); RDW-CV 15.9 % (10.5-14.5); WBC 16.3 thou/uL (4.0-11.0)
[2019-02-13 10:50] LABS: PLATELET COUNT* 257 thou/uL (150-400)
[2019-02-13 10:54] LABS: CALCIUM 8.7 mg/dL (8.5-10.1); CREATININE 1.5 mg/dL (0.6-1.3); POTASSIUM 3.7 mmol/L (3.5-5.1)
[2019-02-13 10:59] LABS: ALBUMIN 2.2 g/dL (3.4-5.0); MAGNESIUM 1.8 mg/dL (1.8-2.4); TOTAL BILIRUBIN 0.6 mg/dL (<0.1-1.0); TOTAL PROTEIN 6.1 g/dL (6.4-8.2)
--- NOTE | 2019-02-13 15:47 | NUR ---
ICU rounds: Continue current POC after dtr discussed with Dr. Waldron in place. CM spoke with Jelena at [place], they are still reviewing referral to have Pt placed there LTC with hospice.
--- NOTE | 2019-02-13 18:58 | NUR ---
PT RESTFUL MOST OF THE DAY. VSS. ATE 50% OF HIS BREAKFAST AND NONE FOR REST OF THE MEALS. NON VERBAL. Q2 TURNS AND ORAL CARE GIVEN, MORE COMFORTABLE IN HIS LT SIDE. PPN STARTED AT 40 MLS/HR. 1/2NS AT 125 MLS/HR. PARTIAL BED BATH GIVEN.
[2019-02-14] VITALS (35 sets, daily range): BP systolic 90–176; BP diastolic 39–92
--- NOTE | 2019-02-14 05:20 | NUR ---
VITALS STABLE, TEMP MAX 99.0 F. PT ON HIGH FLOW 5L PER NC, SINUS TACH ON THE MONITOR. PT BREATHING HARDER AND NEEDING INCREASED O2 SUPPORT THIS AM, SLEPT THROUGH THE NIGHT WITH NO PROBLEM, HOWEVER. PT GETS ANXIOUS AT TIMES, NOT ORIENTED AND UNABLE TO EXPRESS HIMSELF. DID ANSWER WITH "YES" ONCE WHEN ASKED IF HE HAS PAIN. BM X1, SMALL AND SOFT. 300 CC UOP, DARK YELLOW. OTHERWISE UNEVENTFUL NIGHT. Q2 TURNS FOR SKIN INTEGRITY.
[2019-02-14 09:25] LABS: ABSOLUTE BASOPHILS 0.1 thou/uL (0.0-0.2); ABSOLUTE EOSINOPHILS 0.3 thou/uL (0.0-0.7); ABSOLUTE LYMPHOCYTES 1.5 thou/uL (0.8-5.3); ABSOLUTE MONOCYTES 0.8 thou/uL (0.0-1.2); ABSOLUTE NEUTROPHILS 9.9 thou/uL (1.6-8.1); BASOPHILS 0.9 %; EOSINOPHILS 2.5 %; HEMATOCRIT 27.6 % (42.0-52.0); HEMOGLOBIN 8.9 gm/dL (14.0-18.0); LYMPHOCYTES 11.8 %; MCH 29.6 pg (26.0-34.0); MCHC 32.3 g/dL (28.0-37.0); MCV 91.7 fL (80.0-100.0); MONOCYTES 6.7 %; MPV 7.8 fl. (7.2-11.1); NUCLEATED RBCS 0 /100WBC; PLATELET COUNT* 234 thou/uL (150-400); POLYS 78.1 %; RBC 3.01 mil/uL (4.50-6.00); RDW-CV 16.9 % (10.5-14.5); WBC 12.7 thou/uL (4.0-11.0)
[2019-02-14 09:39] LABS: CALCIUM 8.4 mg/dL (8.5-10.1); CREATININE 1.1 mg/dL (0.6-1.3); POTASSIUM 4.3 mmol/L (3.5-5.1); TOTAL BILIRUBIN 0.3 mg/dL (<0.1-1.0)
--- NOTE | 2019-02-14 11:17 | NUR ---
ICU rounds: Continue POC for possible improvement. Mainly non verbal, moans and says "pain." 5L HF o2. MRSA swab today. CXR pending, Pt sounds wheezy. Iso for ESBL in urine. Altered mech soft diet, meds with applesauce. Start Xanax today. Peripheral Iv. PPN. Remain in ICU for 1 more day. Chuck Garza continue to review referral. Following
--- NOTE | 2019-02-14 13:06 | NUR ---
PT RESPONDED YES TO PAIN ASSESSMENT-PO MEDICATIONS GIVEN.PT IS TACHYPNEIC IN THE 50s-60s AND TACHYCARDIC IN THE 120s-130s.DOCTOR NOTIFIED AND CAME BACK TO SEE PT.PT HAS LOW GRADE FEVER AND IS FLUSHED IN THE FACE.WILL CONTINUE TO MONITOR.
[2019-02-14 15:01] LABS: URINE BILIRUBIN NEGATIVE (Negative); URINE BLOOD 3+ (Negative); URINE CLARITY SL CLOUDY; URINE COLOR DARK YELLOW; URINE GLUCOSE-RANDOM NEGATIVE (Negative); URINE KETONES NEGATIVE (Negative); URINE LEUKOCYTES-REFLEX TRACE (Negative); URINE NITRITE-REFLEX NEGATIVE (Negative); URINE PROTEIN TRACE (Negative); URINE SPECIFIC GRAVITY 1.015 (1.005-1.030); URINE UROBILINOGEN 0.2 E.U./dl (0.2-1.0)
[2019-02-14 15:13] LABS: SQUAMOUS NONE SEEN /LPF (0-3)
[2019-02-14 15:14] LABS: CASTS None Seen /LPF (None Seen); CRYSTALS None Seen /LPF (None Seen); URINE RBC >20 Many /HPF (0-2); URINE WBC-REFLEX 6-15 Few /HPF (0-5); YEAST-REFLEX Present (None Seen)
--- NOTE | 2019-02-14 17:37 | NUR ---
PT HAS BEEN NON VERBAL AND NOT ABLE TO FOLLOW COMMANDS FOR THE MAJORITY OF THE SHIFT.FASHION STYLING INTERN IN PLACE TRACING SR.PT REMAINS ON 4L O2 NC WITH RESPIRATIONS WITHIN NORMAL LIMITS.PT CARBAJAL WAS FOUND TWISTED.AFTER NURSE UNTWISTED CARBAJAL PT HAD GOOD OUTPUT-LASIX GIVEN THIS AM.MRSA SWAB COLLECTED.UA CULTURE COLLECTED.CONTACT ISOLATION MAINTAINED FOR ESBL IN THE URINE.SPEECH THERAPY SAW PT AND CHANGED DIET TO PUREE WITH THIN LIQUIDS.PT HAS HAD POOR APPETITE AND UNABLE TO AROUSE ENOUGH TO EAT. CXR COMPLETED.PT HAS RAN A LOW GRADE FEVER THROUGHOUT SHIFT-MEDICATIONS GIVEN.Q2 HOUR POSITION CHANGES COMPELTED. FAMILY INFORMED OF PLAN OF CARE AND COMMUNICATES UNDERSTANDING.WILL CONTINUE TO MONITOR FOR DURATION OF SHIFT.
[2019-02-15] VITALS (51 sets, daily range): BP systolic 88–123; BP diastolic 45–72
--- NOTE | 2019-02-15 05:55 | NUR ---
VITALS STABLE, AFEBRILE. PT SLEPT THROUGH THE NIGHT. NO CHANGE IN MENTATION. Q2 TURNS FOR SKIN INTEGRITY.
[2019-02-15 09:34] LABS: ABSOLUTE EOSINOPHILS 0.4 thou/uL (0.0-0.7); ABSOLUTE LYMPHOCYTES 1.2 thou/uL (0.8-5.3); ABSOLUTE MONOCYTES 0.6 thou/uL (0.0-1.2); ABSOLUTE NEUTROPHILS 6.5 thou/uL (1.6-8.1); BASOPHILS 0.4 %; EOSINOPHILS 4.7 %; HEMATOCRIT 25.8 % (42.0-52.0); HEMOGLOBIN 8.7 gm/dL (14.0-18.0); LYMPHOCYTES 13.9 %; MCH 29.6 pg (26.0-34.0); MCHC 33.5 g/dL (28.0-37.0); MCV 88.2 fL (80.0-100.0); MONOCYTES 7.2 %; MPV 7.2 fl. (7.2-11.1); NUCLEATED RBCS 0 /100WBC; PLATELET COUNT* 194 thou/uL (150-400); POLYS 73.8 %; RBC 2.93 mil/uL (4.50-6.00); RDW-CV 16.1 % (10.5-14.5); WBC 8.9 thou/uL (4.0-11.0)
[2019-02-15 09:48] LABS: ALBUMIN 1.8 g/dL (3.4-5.0); CALCIUM 8.4 mg/dL (8.5-10.1); POTASSIUM 3.6 mmol/L (3.5-5.1); TOTAL BILIRUBIN 0.3 mg/dL (<0.1-1.0); TOTAL PROTEIN 5.2 g/dL (6.4-8.2)
--- NOTE | 2019-02-15 14:53 | NUR ---
ICU rounds: Family meeting with YONG Moreno and 2 dtrs. Plan to continue aggressive treatment through the weekend and reassess on Monday. Cm discussed dispo options. CM informed dtrs that [facility] do not have any LTC beds. Family to discuss POC over the weekend.
--- NOTE | 2019-02-15 16:48 | NUR ---
VSS.CANCER PROGRAM DIRECTOR IN PLACE WITH NO CHANGES.PT REMAINS ON 4L O2 NC.IV ANTIBIOTICS GIVEN.PPN INFUSING PER ORDERS.CARBAJAL SECURE AND PATENT WITH ADEQUATE OUTPUT-LASIX GIVEN THIS AM.C/O KNEE PAIN-MEDICATIONS GIVEN.PT HAS INTERMITTENTLY BEEN MORE AWAKE THIS EVENING AND ABLE TO COMMUNICATE WITH NURSE AND FAMILY AT BEDSIDE.ISOLATION MAINTAINED.Q2 HOUR POSITION CHANGES COMPLETED.WILL CONTINUE TO MONITOR FOR DURATION OF SHIFT.
[2019-02-16] VITALS (10 sets, daily range): BP systolic 100–133; BP diastolic 51–74
--- NOTE | 2019-02-16 06:15 | NUR ---
ASSESSMENTS CHARTED. PATIENT REMAINED IN THE BED THROUGHOUT THE SHIFT. TITRATED OXYGEN DOWN TO 3L VIA NC. ATTEMPTED TURNS AND REPOSITIONING WITH LITTLE SUCCESS DUE TO PATIENT'S CONTRACTURES. PPN STILL INFUSING AT 80/HR. NO SIGNIFICANT EVENTS THIS SHIFT. WCTM
--- NOTE | 2019-02-16 10:25 | NUR ---
PATIENT REMAINS CONTRACTED CRIES OUT IN PAIN WHEN ATTEMPTIN TO DO RANGE OF MOTION. WAS ABLE TO TAKE PO MEDS CRUSHED MORE ALERT. MORE VOCAL. UNABLE TO GET MIDLINE PLACED. WILL TRANSFER TO TELEMETRY.
[2019-02-16 11:36] LABS: ABSOLUTE EOSINOPHILS 0.4 thou/uL (0.0-0.7); ABSOLUTE LYMPHOCYTES 1.1 thou/uL (0.8-5.3); ABSOLUTE MONOCYTES 0.6 thou/uL (0.0-1.2); ABSOLUTE NEUTROPHILS 5.3 thou/uL (1.6-8.1); BASOPHILS 0.6 %; EOSINOPHILS 5.3 %; HEMATOCRIT 26.2 % (42.0-52.0); HEMOGLOBIN 8.7 gm/dL (14.0-18.0); LYMPHOCYTES 14.7 %; MCH 29.7 pg (26.0-34.0); MCHC 33.3 g/dL (28.0-37.0); MCV 89.2 fL (80.0-100.0); MONOCYTES 8.3 %; MPV 8.5 fl. (7.2-11.1); NUCLEATED RBCS 0 /100WBC; PLATELET COUNT* 187 thou/uL (150-400); POLYS 71.1 %; RBC 2.93 mil/uL (4.50-6.00); RDW-CV 16.2 % (10.5-14.5); WBC 7.4 thou/uL (4.0-11.0)
--- NOTE | 2019-02-16 17:49 | NUR ---
PATIENT REMAINS OBTUNDED BUT CONVERSES. TAKING MINIMAL PO TOLERATES HONEY THICK LIQUIDS. CO PAIN IN KNEE. GAVE TYLENOL SUPP APPEARS TO BE MORE COMFORTABLE. PATIENT NOW MED SURG STATUS. NEEDS TO BE FED. ATTEMPTS AT MAKING COMFORTABLE DIFFICULT.
--- NOTE | 2019-02-16 22:35 | NUR ---
PATIENT OFF UNIT TO ROOM 312 AT 2225
--- NOTE | 2019-02-17 05:54 | NUR ---
PATIENT WAS AN ICU TRANSFER AT ABOUT 2230. AGREE WITH SHIFT ASSESSMENT. IV FLUIDS AND ANTIBIOTICS WERE GIVEN ORDERED. CARBAJAL REMAINS TO DEPENDENT DRAIN. PATIENT WAS TURNED ABOUT EVERY TWO HOURS. WILL CONTINUE TO MONITOR.
[2019-02-17 07:05] VITALS: BP 115/58
[2019-02-17 09:52] LABS: ABSOLUTE EOSINOPHILS 0.4 thou/uL (0.0-0.7); ABSOLUTE LYMPHOCYTES 0.9 thou/uL (0.8-5.3); ABSOLUTE MONOCYTES 0.6 thou/uL (0.0-1.2); ABSOLUTE NEUTROPHILS 4.3 thou/uL (1.6-8.1); BASOPHILS 0.5 %; EOSINOPHILS 6.4 %; HEMATOCRIT 24.9 % (42.0-52.0); HEMOGLOBIN 8.3 gm/dL (14.0-18.0); LYMPHOCYTES 14.1 %; MCH 29.4 pg (26.0-34.0); MCHC 33.6 g/dL (28.0-37.0); MCV 87.5 fL (80.0-100.0); MONOCYTES 9.6 %; MPV 7.8 fl. (7.2-11.1); NUCLEATED RBCS 0 /100WBC; PLATELET COUNT* 196 thou/uL (150-400); POLYS 69.4 %; RBC 2.84 mil/uL (4.50-6.00); RDW-CV 15.6 % (10.5-14.5); WBC 6.2 thou/uL (4.0-11.0)
[2019-02-17 10:05] LABS: ALBUMIN 1.8 g/dL (3.4-5.0); CALCIUM 8.4 mg/dL (8.5-10.1); CREATININE 0.8 mg/dL (0.6-1.3); POTASSIUM 3.5 mmol/L (3.5-5.1); TOTAL BILIRUBIN 0.2 mg/dL (<0.1-1.0); TOTAL PROTEIN 5.3 g/dL (6.4-8.2)
[2019-02-17 15:57] VITALS: BP 110/49
--- NOTE | 2019-02-17 16:45 | NUR ---
PT REMAINED ALERT TO SELF. PAIN MEDS GIVEN ORDERED. NEW IV PLACED. FALL RISK PRECAUTIONS IN PLACE. HOURLY ROUNDING COMPLETED. WILL CONTINUE TO MONITOR.
[2019-02-18] VITALS: BP 136/57
--- NOTE | 2019-02-18 06:07 | NUR ---
PATIENT SLEPT MOST OF THE NIGHT. IV FLUIDS AND ANTIBIOTCS WERE GIVEN ORDERED. CARBAJAL REMAINS TO DEPENDENT DRAIN. PATIENT REMAINS ON OXYGEN AT 2L PER NC. WILL CONTINUE TO MONITOR.
[2019-02-18 08:06] LABS: ABSOLUTE EOSINOPHILS 0.4 thou/uL (0.0-0.7); ABSOLUTE LYMPHOCYTES 1.2 thou/uL (0.8-5.3); ABSOLUTE MONOCYTES 0.7 thou/uL (0.0-1.2); ABSOLUTE NEUTROPHILS 3.2 thou/uL (1.6-8.1); BASOPHILS 0.8 %; HEMATOCRIT 24.9 % (42.0-52.0); HEMOGLOBIN 8.3 gm/dL (14.0-18.0); LYMPHOCYTES 21.3 %; MCH 29.4 pg (26.0-34.0); MCHC 33.5 g/dL (28.0-37.0); MCV 87.8 fL (80.0-100.0); MONOCYTES 13.3 %; NUCLEATED RBCS 0 /100WBC; PLATELET COUNT* 184 thou/uL (150-400); POLYS 57.6 %; RBC 2.84 mil/uL (4.50-6.00); RDW-CV 15.7 % (10.5-14.5); WBC 5.6 thou/uL (4.0-11.0)
[2019-02-18 08:10] VITALS: BP 144/71
[2019-02-18 08:10] LABS: CREATININE 0.9 mg/dL (0.6-1.3)
[2019-02-18 15:45] VITALS: BP 118/50
--- NOTE | 2019-02-18 16:54 | NUR ---
PATIENT HAS SLEPT MOST OF SHIFT, AROUSES EASILY. PATIENT REFUSING MEALS, WILL EAT ONLY 1-2 BITES. PAIENT TAKING MEDS CRUSHED IN PUDDING WITHOUT DIFFICULTY. ST SAW PATIENT THIS AFTERNOON, PATIENT TO CONTINUE ON NEC THICK LIQUIDS DUE TO COUGHING WITH THIN LIQUIDS. IV RESRARTED TO RIGHT HAND, PPN/ABX INFUSED ORDERED. TURN Q2. CARBAJAL DRAINING YELLOW URINE. NO BM NOTED THIS SHIFT.
--- NOTE | 2019-02-18 17:21 | NUR ---
SW attempted to reach out to family members to discuss safe dc planning and possible hospice resource/referral options. SW called Aimee and Rima both unavailable so SW left messages for the pt dtrs and requested call back to discuss dc plan. SW to continue to follow.
[2019-02-19 00:30] VITALS: BP 125/52
--- NOTE | 2019-02-19 04:54 | NUR ---
PATIENT LETHARGIC/ASLEEP DURING THIS SHIFT. PT TURNED Q2H PER PROTOCAL. FLUIDS/ANTIBIOTICS INFUSED PER DR ORDER. PT ON O2 @ 2 LITERS PER NC. PT IN ISOLATION FOR ESBL IN URINE. FREQUENTLY USED ITEMS AND CALL LIGHT WITHIN REACH. SIDERAILS UPX3 AND BED ALARM ON. WILL CONTINUE TO MONITOR.
[2019-02-19 07:30] VITALS: BP 117/62
--- NOTE | 2019-02-19 13:42 | NUR ---
DWAINE spoke with Yanely at [facility] to provide update on pt dc planning and working towards tomorrow to return to [facility] LTC. SW faxed updated clinical information for continuation of care. SW to continue to follow to assist with finalizing safe dc plan. Yanely shared that pt was on [facility] at facility and either way, pt could return to LTC with our without hospice pending pt/family final decision. [facility] [phone]
--- NOTE | 2019-02-19 15:07 | NUR ---
PATIENT CARBAJAL DC'D AT 1100 PER ORDERS, NO URINE NOTED AT THIS TIME. IV SL PER ORDERS. PATIENT STARTED ON PO FLUCONAZOLE PER DR. GONCALVES'S ORDERS. PATIENT MORE ALERT TODAY. PATIENT EATING AT LEAST 25-40% OF MEAL WITH ASSISTANCE. PATIENT FREQUENTLY OFFERED THICKENED WATER. DRESSING IN PLACE TO LEFT LATERAL FOOT FOR PAST WOUND, WOUND CARE CONSULT PLACED. TURNED Q2. PATIENT POSSIBLE DISCHARGE BACK TO [facility] TOMORROW.
[2019-02-19 16:00] VITALS: BP 118/58
--- NOTE | 2019-02-19 18:45 | NUR ---
ASSUMED CARE OF PATIENT AT 1600. BLADDER SCAN SHOWS 429ML. CARBAJAL PLACED PER ORDER. ALL SAFETY MEASURES MAINTAINED. PATIENT AWAKE IN BED WITH FAMILY AT BEDSIDE. PATIENT TURNED AND REPOSITIONED EVERY 2 HOURS.
[2019-02-19 20:00] VITALS: BP 99/48
[2019-02-20 04:35] LABS: ABSOLUTE BASOPHILS 0.1 thou/uL (0.0-0.2); ABSOLUTE EOSINOPHILS 0.4 thou/uL (0.0-0.7); ABSOLUTE LYMPHOCYTES 1.7 thou/uL (0.8-5.3); ABSOLUTE MONOCYTES 0.9 thou/uL (0.0-1.2); ABSOLUTE NEUTROPHILS 4.6 thou/uL (1.6-8.1); BASOPHILS 0.7 %; EOSINOPHILS 4.9 %; HEMOGLOBIN 9.1 gm/dL (14.0-18.0); LYMPHOCYTES 22.1 %; MCH 29.7 pg (26.0-34.0); MCHC 33.6 g/dL (28.0-37.0); MCV 88.4 fL (80.0-100.0); MONOCYTES 11.6 %; NUCLEATED RBCS 0 /100WBC; PLATELET COUNT* 245 thou/uL (150-400); POLYS 60.7 %; RBC 3.05 mil/uL (4.50-6.00); RDW-CV 15.8 % (10.5-14.5); WBC 7.6 thou/uL (4.0-11.0)
[2019-02-20 04:51] LABS: CALCIUM 8.8 mg/dL (8.5-10.1); CREATININE 0.8 mg/dL (0.6-1.3); POTASSIUM 4.3 mmol/L (3.5-5.1)
--- NOTE | 2019-02-20 04:58 | NUR ---
ASSUMED PATIENT CARE AT 1900. PATIENT ALERT TO SELF. PATIENT IS CONTRACTED AND LOOKS TO BE BEDRIDDEN. TURNED Q2H. SERVICE ORDER CLERK AND HOURLY ROUNDING COMPLETED DOCUMENTED. NO COMPLAINTS OF PAIN OR DISCOMFORT NOTED. COOPERATIVE WITH ALL CARES
--- NOTE | 2019-02-20 09:18 | NUR ---
WOUND CARE NOTE: CONSULT RECEIVED FOR LEFT FOOT WOUND. PATIENT PRESENTS WITH AN UNSTAGEABLE PRESSURE ULCER TO THE LEFT LATERAL FOOT MEASURING 0.6X1.8X0.1. MOIST, YELLOW, ESCHAR PRESENT TO APPROXIMATELY 95% OF THE WOUND BED 5% RED, GRANULAR, FRIABLE TISSUE. WOUND WAS CLEANSED WITH WOUND CLEANSER, PATTED DRY. APPLIED OPTIFOAM AG AND SECURED WITH A TEGADERM. PATIENT IS CONTRACTED, HAS HIS LEFT LEG OVER HIS RIGHT. MOST LIKELY HAS HIS LATERAL LEFT FOOT SITTING ON A SURFACE. PATIENT WAS OFFLOADED APPROPRIATELY WITH A PILLOW BEFORE LEAVING ROOM. UNABLE TO EDUCATE PATIENT ON OFFLOADING DUE TO MENTATION. RECOMMEND KEEP FOOT OFFLOADED Q3 DAY DRESSING CHANGE COULD BENEFIT FROM WOUND CENTER UPON DISCHARGE ENCOURAGE GOOD NUTRTION/HYDRATION FOR WOUND HEALING
--- NOTE | 2019-02-20 11:52 | NUR ---
PT.TO DISCHARGE TODAY BACK TO LTC AT [facility]. [facility] SPOKE WITH DAUGHTER,HUEY, ON PHONE. SHE MAY BE INTERESTED IN PUTTING PT.BACK ON HOSPICE AT FACILITY. NOTIFIED CORINNE/GERALDO ROY. FAXED DISCHARGE ORDERS TO HER. CHART COPIED TO GO WITH PT. MARYAN MARTÍNEZ WILL CALL REPORT. PT.WILL NEED TO TRANSPORT VIA AMBULANCE. CM WILL NOTIFY DAUGHTER OF AMBULANCE TIME.
[2019-02-20] MEDS ORDERED: XANAX 0.25 MG0.25 MG PO (12:46)
[2019-02-20] MEDS ORDERED: DIFLUCAN200 MG PO (12:55)
[2019-02-20 14:08] VITALS: BP 99/48
--- NOTE | 2019-02-20 14:37 | NUR ---
PATIENT ALERT TODAY BUT FUSSY. DENTURE CARE GIVEN PRIOR TO BREAKFAST. PATIENT TAKING NECTAR THICKENED LIQUIDS WITH ASSISTED BY NURSE. PATIENT DID TAKE A FEW BITES OF BREAKFAST AND LUNCH BUT THEN REFUSED. IV SL, CHRIST'D PER PROTOCOL. WOUND NURSE SAW PATIENT THIS AM FOR LEFT LATERAL FOOT WOUND, DRESSING APPLIED. 02 3L NC REMAINS IN PLACE. PATIENT DISCHARGED BACK TO [facility] AT THIS TIME, ATTEMPTING TO CALL REPORT.
== END 2019-02-20 14:30 | DRG 871 ==
LOC: M.ERS 10:42 → M.ICU 11:43 → M.TBA-ER 11:43 → M.ICU 13:02 → M.3W 02-16 22:36
PROVIDERS: Emergency Medicine Emergency Medical Services; Internal Medicine; Specialist; ADMIT Family Medicine
DX: A41.9 Sepsis, unspecified organism (principal); G93.41 Metabolic encephalopathy; J15.6 Pneumonia due to other Gram-negative bacteria; N17.0 Acute kidney failure with tubular necrosis; E43 Unspecified severe protein-calorie malnutrition; N39.0 Urinary tract infection, site not specified; E87.0 Hyperosmolality and hypernatremia; J96.10 Chronic respiratory failure, unspecified whether with hypoxia or hypercapnia; Z68.1 Body mass index [BMI] 19.9 or less, adult; J44.0 Chronic obstructive pulmonary disease with (acute) lower respiratory infection; I12.9 Hypertensive chronic kidney disease with stage 1 through stage 4 chronic kidney disease, or unspecified chronic kidney disease; F41.9 Anxiety disorder, unspecified; F32.9 Major depressive disorder, single episode, unspecified; F03.90 Unspecified dementia, unspecified severity, without behavioral disturbance, psychotic disturbance, mood disturbance, and anxiety; N18.3 Chronic kidney disease, stage 3 (moderate); R13.10 Dysphagia, unspecified; K59.00 Constipation, unspecified; D47.3 Essential (hemorrhagic) thrombocythemia; G89.4 Chronic pain syndrome; F39 Unspecified mood [affective] disorder; R65.20 Severe sepsis without septic shock; Z87.891 Personal history of nicotine dependence; Z99.81 Dependence on supplemental oxygen; Z91.81 History of falling